=== PATIENT | female | born 2000 | race Caucasian/White ===

== ENCOUNTER → 2022-07-15 08:57 | Outpatient (CLI) | payer OTHER, SELFPAY ==
--- NOTE | ~2022-07-15 | US_ITS ---
EXAMINATION: US abdomen limited DATE: 07/15/2022 09:22 INDICATION: Right upper quadrant abdominal pain. TECHNIQUE: Multiple grayscale and Doppler ultrasound images of the abdomen were obtained. COMPARISON: None FINDINGS: The visualized portions of the head and body of the pancreas are normal. The liver is beth l without focal lesion. There is normal flow in main portal vein. The gallbladder is normal in size a nd contains gallstones. No gallbladder wall thickening. There was a positive sonographic Albrecht sign. The common duct is normal and measures 3 mm . IMPRESSION: 1. Cholelithiasis and positive sonographic Albrecht sign, but no gallbladder wall thickening or gallbla dder distention to suggest acute cholecystitis. Reviewed, dictated and finalized at location A. [employer] IMPRESSION: 1. Cholelithiasis and positive sonographic Albrecht sign, but no gallbladder wall thickening or gallbladder distention to suggest acute cholecystitis.
== END ==
PROVIDERS: PCP Family Medicine; Visit Provider Surgery
DX: R10.11 Right upper quadrant pain (principal); K80.20 Calculus of gallbladder without cholecystitis without obstruction
CPT/HCPCS: 76705

== ENCOUNTER 2022-07-18 12:03 | Outpatient (CLI) | payer OTHER, SELFPAY ==
[2022-07-18 12:41] LABS: Alanine Aminotransferase 16 U/L (6-35); Albumin Level 4.4 g/dL (3.5-5.1); Alkaline Phosphatase 87 U/L (38-126); Amylase 64 U/L (30-110); Aspartate Amino Transferase 21 U/L (14-36); Bilirubin,Total 0.3 mg/dL (0.2-1.3); Lipase 37 U/L (23-300)
== END 2022-07-18 12:04 | disposition home or self-care (01) ==
PROVIDERS: PCP Family Medicine; Visit Provider Surgery
DX: K80.20 Calculus of gallbladder without cholecystitis without obstruction (principal); Z01.818 Encounter for other preprocedural examination
CPT/HCPCS: 36415; 80076; 82150; 83690; 86850; 86900; 86901

== ENCOUNTER 2022-07-19 01:24 | Day surgery (SDC) | payer OTHER, SELFPAY ==
[2022-07-17 12:53] VITALS: BMI 48.4
--- NOTE | 2022-07-17 12:56 | PC.NURSE ---
Report to the Outpatient Waiting Room, entrance under the green pavilion located off [facility], at time 12:00 on date 07/19/22. Planned Procedure Time: 2:00. Time changes happen often and if your time is changed the preop area will call you the afternoon before. - You and your visitor will be asked to self-screen and do not enter if you have any COVID symptoms. - Only one visitor is requested with a max of two and NO children visitors are allowed at this time. - The patient visitor may be requested to leave or wait in car when not with patient due to distancing restrictions. - A mask is REQUIRED within the hospital. Patients may have clear liquids (water, carbonated beverages, clear teas, apple juice) until 3 hours prior to surgery (11:00) with a maximum of 20 ounces. - No food from midnight until time of surgery Take the following medications with a SIP of water the morning of surgery: NONE Medications to discontinue per physician: N/A Date to take last dose: N/A Please no make-up, nail chinese, hairspray, perfume, deodorant, or body powder the day of surgery. No jewelry (including any body piercings) or valuables the day of surgery, leave them at home. Please take a shower or bath the night before, or the morning of, surgery with an antibacterial soap (HIBICLENS). Wear comfortable, loose fitting clothing. - Jewelry must be removed prior to entering the operating room. Rings and piercings that are not removed may be cut off. - The hospital will not accept responsibility for valuables. - Please leave all valuables, including medications, at home the day of surgery. If you are going home after surgery, a licensed driver salesman must drive you home. - NO public transportation without another adult if you receive anesthesia. - We recommend that an adult stay with you for 24 hours following discharge. - We also recommend that you do not drive, make important decision, drink alcoholic beverages, or take any drugs that were not prescribed by your health care provider for at least 24 hours after your discharge time. Follow any additional instructions given to you from your surgeon. If you or anyone in your household have experienced Covid symptoms in the past week, please notify your surgeon or the nurse liaison at the phone number below for possible testing. Telephone instructions given to PT - JAKE DALTON and asked if any additional questions and then verbalized understanding. Patient advised to call surgeon office or pre surgery nurse liaison [phone] if any additional questions.
[2022-07-19] VITALS (7 sets, daily range): BP systolic 113–150; BP diastolic 53–90; PULSE 80–108; RESP 14–20; TEMP 36.4–37.3; O2SAT 97–100
[2022-07-19] MEDS: LACTATED RINGERS 1,000 ML 30 ML IV CONT ×2 (12:42→14:39)
[2022-07-19] MEDS: ACETAMINOPHEN 500 MG TABLET 1000 MG PO (12:43)
[2022-07-19] MEDS: KETOROLAC 15 MG/ML VIAL (*BKC) IV PUSH (12:44)
--- NOTE | 2022-07-19 13:11 | WPDANESEPPF ---
Anes - Initial Pre Proc Eval Procedure: Operation Date: 07/19/22 14:00 Proposed Procedures p Laparoscopic Cholecystectomy, Possible Open - Noah Nicholas DO Date/Time: 07/19/22 13:11 Surgeon: Noah Nicholas DO Pre Op Diagnosis: symp cholelithiasis Patient Data Age: 22 Gender: F Height: 1.68 m Weight: 132.4 kg Last Vital Signs Temp 37.3 C 07/19/22 12:18 Pulse 90 07/19/22 12:18 Resp 20 07/19/22 12:18 BP 150/90 H 07/19/22 12:18 Pulse Ox 99 07/19/22 12:18 O2 Del Method Room Air 07/19/22 12:18 Allergies Allergy/AdvReac Type Severity Reaction Status Date / Time Penicillins Allergy Intermediate Hives / Verified 07/19/22 12:18 Red Face Home Medications Medication Instructions Recorded Confirmed Type etonogestrel 68 mg subdermal 1 implant subdermal ONCE 07/17/22 07/19/22 History implant (Nexplanon) rizatriptan 10 mg tablet 10 mg PO ONCE PRN migraine headache 07/17/22 07/19/22 History Patient hx anesthesia problems: none Family hx anesthesia problems: none Results Review: All pre-operative results and documents have been reviewed as part of the pre-operative evaluation. [facility] Past Medical History Medical History Migraines Surgical History Surgical History Hx of wisdom tooth extraction 2017 Family History Family History Other Acute myocardial infarction Asthma Diabetes mellitus Heart disease Hypertension Malignant neoplasm of prostate Social History Social History Smoking status: Never smoker Alcohol intake: current Alcohol use details: EVERY FEW MONTHS Substance use: never Substance use type: does not use Living arrangements: with family Spiritual care concerns: No Anes - Eval Final PreProcedure Day of Procedure 07/19/22 13:11 Patient weight: morbidly obese Heart: regular rate and rhythm Lungs: clear to auscultation Airway: Mallampati scale class II Neurological: alert and oriented Last oral intake: >/= 8 hours ASA classification: III Emergent: no Anesthetic plan: proceed Anesthesia type and monitoring: general ETT and standard monitoring Results Review: All pre-operative results and documents have been reviewed as part of the pre-operative evaluation. Informed Consent: The patient's anesthetic plan and its attendant risks and benefits were discussed with the patient/family/POA. Questions were solicited and answers provided to the satisfaction of the patient/family/POA.
--- NOTE | 2022-07-19 13:13 | WPDHPUPDATE1 ---
History and Physical Update Update Date/Time: 07/19/22 13:13 History and Physical has been reviewed, including an updated exam of the patient. There are NO changes in the patient's condition. Risks, benefits, and alternatives have been discussed and questions answered. Patient agrees to proceed with procedure.
[2022-07-19] MEDS: SCOPOLAMINE 1.5 MG PATCH TRANSDERM ×2 (13:15→14:59)
[2022-07-19] MEDS: ceFAZolin 3 GM/D5W 100 ML 100 ML IVPB (13:37)
[2022-07-19] MEDS: BUPIVACAINE/EPINEPHRINE 0.5% 30 ML VIAL INFILTRATE (13:57)
--- NOTE | 2022-07-19 14:37 | W.PM.PROC2 ---
Procedure Note - Detailed Date of Procedure 07/19/22 Pre-op Diagnosis Symptomatic cholelithiasis Post-op Diagnosis Same Procedure Performed Laparoscopic Cholecystectomy Surgeon Noah Nicholas, DO Anesthesia General and Local (0.5% bupivacaine) Indications This is a 22-year-old woman who presented with right upper quadrant abdominal pain that started about 2-3 weeks ago. She has been having intermittent pain after eating. Heavier foods have seemed to cause more pain. A gallbladder ultrasound was performed which showed evidence of cholelithiasis. Her liver enzymes were normal preoperatively. Discussions were made with the patient about treatment options and decision made to proceed with laparoscopic cholecystectomy, possible open. Findings Laparoscopic cholecystectomy was performed. The gallbladder was slightly dilated but there were no significant pericholecystic adhesions. The cystic duct appeared normal in size. The gallbladder contained many small stones. The gallbladder was removed and sent to the lab for pathology. Description of Procedure Procedure as well as risks, benefits, and alternatives were discussed with patient. Written consent was obtained and placed in chart prior to procedure. The patient was brought back to surgical suite. Patient was placed in supine position on operating table. Time-out was done to confirm patient and procedure. Patient was then intubated by the anesthesia department. Abdomen was prepped and draped in sterile fashion using chlorhexidine prep. 0.5% bupivacaine with epinephrine was infiltrated at each site of incision. A 5 millimeter incision was made near the umbilicus, and a 5 millimeter Optiview trocar was advanced through the abdominal layers under direct visualization. Once inside the abdominal cavity, carbon dioxide was insufflated to create a pneumoperitoneum. The camera was inserted and the abdomen was inspected. No immediate abnormalities were identified. The patient was placed in reverse Trendelenburg position and rotated slightly to the left. An 11 millimeter incision was made in the subxiphoid region, and an 11 millimeter trocar was inserted under direct visualization. Two 5 millimeter incisions were made in the right upper quadrant, and two 5 millimeter trocars were inserted under direct visualization. The gallbladder was identified and grasped at the fundus and retracted superiorly. It was then grasped at the infundibulum retracted laterally. Careful dissection around the neck of the gallbladder was performed using blunt dissection with a [place] grasper and hook electrocautery. The cystic duct was identified, and a window was created behind it. The cystic artery was also identified and a window was created behind it. The critical view of safety was identified, visualizing the cystic duct running directly into the neck of the gallbladder, and the cystic artery running directly into the wall of the gallbladder. A 5 millimeter clip geriatric physical therapist was then used to place 2 clips proximally and 1 clip distally on both the cystic duct and cystic artery. They were then both transected using endoscopic scissors. Once safely away from the coleman hepatitis, the gallbladder was dissected free from the liver bed using hook electrocautery. Hemostasis was achieved along the way. The gallbladder was removed completely and then removed through the subxiphoid port. The liver bed was then inspected. Hemostasis appeared adequate, and our clips appeared secure. The area was gently irrigated with sterile saline. No other abnormalities were seen. The patient was flattened out in bed, and 1 final inspection was made around the abdominal cavity. The subxiphoid port was removed, and a David Kevan cone was used to approximate the fascia with an 0-Vicryl simple interrupted suture. The remaining ports were then removed under direct visualization, the camera was removed, and the pneumoperitoneum was released. The skin
== END 2022-07-19 16:20 | disposition home or self-care (01) ==
PROVIDERS: PCP Family Medicine; Visit Provider Surgery
PROC: 0FT44ZZ Resection of Gallbladder, Percutaneous Endoscopic Approach (ICD-10-PCS; CPT 47562; principal; 2022-07-19 14:00)
DX: K80.10 Calculus of gallbladder with chronic cholecystitis without obstruction (principal); E66.01 Morbid (severe) obesity due to excess calories; Z68.42 Body mass index [BMI] 45.0-49.9, adult
CPT/HCPCS: 47562; 88304; A9270; J0330; J0690; J1100; J1885; J2250; J2270; J2405; J2704; J7120

== ENCOUNTER 2023-01-26 07:45 | Outpatient (CLI) | payer OTHER, SELFPAY ==
[2023-01-26 08:45] LABS: Alanine Aminotransferase 17 U/L (6-35); Albumin Level 3.8 g/dL (3.5-5.1); Alkaline Phosphatase 76 U/L (38-126); Anion Gap 6 mmol/L (8-16); Aspartate Amino Transferase 24 U/L (14-36); Bilirubin,Total 0.5 mg/dL (0.2-1.3); Blood Urea Nitrogen 8 mg/dL (7-17); Calcium 8.7 mg/dL (8.4-10.2); Carbon Dioxide 27 mmol/L (22-30); Chloride 105 mmol/L (98-107); Estimated Glomerular Filt Rate > 60; Glucose 93 mg/dL (65-110); Sodium 138 mmol/L (137-145)
[2023-01-26 08:46] LABS: Hemoglobin A1C 5.5 % (<5.7)
== END 2023-01-26 07:46 | disposition home or self-care (01) ==
PROVIDERS: PCP Family Medicine; Visit Provider Family Medicine
DX: Z00.00 Encounter for general adult medical examination without abnormal findings (principal)
CPT/HCPCS: 36415; 80053; 83036

== ENCOUNTER 2023-04-24 17:19 | Emergency (ER) | payer OTHER, SELFPAY ==
--- NOTE | ~2023-04-24 | XR_ITS ---
EXAM: XR shoulder LT min 2V DATE: 04/24/2023 18:25 HISTORY: Pain in shoulder 1 week. NKI . COMPARISON: None available. FINDINGS: Normal mineralization. No fracture or dislocation. No lytic or blastic lesion. Mild degene rative change at the AC joint. No erosion or periosteal change. Soft tissues within normal limits. IMPRESSION: No acute osseous finding in the left shoulder. Reviewed, dictated and finalized at location K.
[2023-04-24 17:25] VITALS: BP 149/57; PULSE 96; RESP 18; TEMP 37.1; O2SAT 100
--- NOTE | 2023-04-24 18:16 | ED.GENADULT ---
HPI - General Adult General Chief complaint: Extremity Injury, Upper Stated complaint: Left Arm Injury Source: patient Mode of arrival: ambulatory Limitations: no limitations History of Present Illness HPI narrative: Patient presents for evaluation of left shoulder pain. Pain started about one week ago. She cannot identify a specific injury. Pain is worst upon waking for the day. She rates her pain 8/10 in severity. She notes some pain in the left lateral aspect of her neck. She also reports numbness in the fifth digit of the left hand. Pain is worse with certain movements. She has tried tylenol and ibuprofen for her symptoms. Related Data Home Medications Medication Instructions Recorded Confirmed etonogestrel 68 mg subdermal 1 implant subdermal ONCE 07/17/22 04/24/23 implant (Nexplanon) rizatriptan 10 mg tablet 10 mg PO ONCE PRN migraine headache 07/17/22 04/24/23 Allergies Allergy/AdvReac Type Severity Reaction Status Date / Time Penicillins Allergy Intermediate Hives / Verified 04/24/23 17:34 Red Face Review of Systems Review of Systems: CONSTITUTIONAL: Denies fever, chills, or sweats. EYES: Denies visual changes, redness, or discharge. ENT: Denies rhinorrhea, congestion, sore throat, or otalgia. CARDIOVASCULAR: Denies chest pain, palpitations, or edema. RESPIRATORY: Denies cough or dyspnea. GASTROINTESTINAL: Denies abdominal pain, nausea, vomiting, or diarrhea. GENITOURINARY: Denies dysuria or hematuria. SKIN: Denies rash or itching. MUSCULOSKELETAL: Reports pain in left shoulder with some pain in numbness in left lateral aspect of the neck NEUROLOGIC: Reports numbness in fifth digit of left hand. Denies headache, dizziness, or weakness. PSYCHIATRIC: Denies anxiety or depression. [facility] Past Medical History Medical History Migraines Surgical History Surgical History Hx of wisdom tooth extraction 2017 Family History Family History Other Acute myocardial infarction Asthma Diabetes mellitus Heart disease Hypertension Malignant neoplasm of prostate Social History Social History Smoking status: Never smoker Alcohol intake: current Alcohol use details: EVERY FEW MONTHS Substance use: never Substance use type: does not use Living arrangements: with family Gender identity (if verbalized by the patient): Female Sexual Orientation (if Verbalized by the Patient): Straight or Heterosexual Spiritual care concerns: No Exam Narrative: GENERAL: Well-appearing, well-nourished, and in no acute distress. HEAD: Normocephalic, atraumatic. EYES: PERRLA and EOMI. ENT: Nares clear, no rhinorrhea or epistaxis. Mucous membranes moist. Oropharynx without tonsillar hypertrophy exudate or other lesions. Bilateral TMs pearly hernandez nonbulging NECK: Supple. No adenopathy or masses. No carotid bruits or JVD CHEST: Clear to auscultation. No respiratory distress. No wheezes rales or rhonchi HEART: Regular rate and rhythm. No murmur heard. Normal peripheral pulses. ABDOMEN: Soft, nontender, nondistended, normal active bowel sounds. EXTREMITIES: Tenderness noted in left shoulder. No crepitus or deformity. Full ROM of left shoulder. 5/5 hand stock control supervisor strength bilaterally. SKIN: Warm, dry, no rash. NEURO: No focal deficits. Alert and oriented x3. PSYCH: Normal mood and affect. Course Course Emergency Course: This is a 22-year-old female who presented for evaluation of left shoulder pain. X-ray negative for fracture. Exam is consistent with strain. Offered to discharge her with tramadol or flexeril, which she declined. Advised on RICE therapy. OTC agents for pain. Follow-up with primary provider. Go to the emergency department for worsen
== END 2023-04-24 18:50 | disposition home or self-care (01) ==
PROVIDERS: Emergency Provider Nurse Practitioner; PCP Family Medicine
DX: S46.912A Strain of unspecified muscle, fascia and tendon at shoulder and upper arm level, left arm, initial encounter (principal); X58.XXXA Exposure to other specified factors, initial encounter
CPT/HCPCS: 73030; 99213; G0463

== ENCOUNTER 2023-11-27 07:39 | Outpatient (CLI) | payer OTHER, SELFPAY ==
[2023-11-27 08:06] LABS: Hematocrit 37.6 % (37.0-47.0); Hemoglobin 11.8 g/dL (12.0-15.0); Mean Corpuscular HGB Conc 31.4 g/dl (32-36); Mean Corpuscular Hemoglobin 25.5 pg (26-34); Mean Corpuscular Volume 81.4 fl (80-100); Mean Platelet Volume 8.6 fl (7.4-10.4); Platelet Count Result 464 k/mm3 (150-375); Red Blood Count 4.62 M/mm3 (4.2-5.4); White Blood Count 9.3 K/mm3 (4.5-10.0)
[2023-11-27 08:13] LABS: Alanine Aminotransferase 13 U/L (6-35); Albumin Level 4.1 g/dL (3.5-5.1); Alkaline Phosphatase 82 U/L (38-126); Anion Gap 8 mmol/L (4-12); Aspartate Amino Transferase 16 U/L (14-36); Bilirubin,Total 0.6 mg/dL (0.2-1.3); Blood Urea Nitrogen 9 mg/dL (7-17); Calcium 9.2 mg/dL (8.4-10.2); Carbon Dioxide 22 mmol/L (22-30); Chloride 108 mmol/L (98-107); Cholesterol 136 mg/dL (0-200); Estimated Glomerular Filt Rate > 60; Glucose 99 mg/dL (65-110); HDL Direct 38 mg/dL; Sodium 138 mmol/L (137-145); Triglycerides 71 mg/dL (<150)
[2023-11-27 08:23] LABS: LDL Cholesterol Direct 81 mg/dL
== END 2023-11-27 07:40 | disposition home or self-care (01) ==
LOC: ANHLAB 07:41
PROVIDERS: PCP Nurse Practitioner Adult Health; Visit Provider Nurse Practitioner Adult Health
DX: Z13.9 Encounter for screening, unspecified (principal)
CPT/HCPCS: 36415; 80053; 80061; 84443; 85027

== ENCOUNTER 2024-10-13 13:40 | Outpatient (CLI) | payer OTHER, SELFPAY ==
--- OUTSIDE RECORDS SUMMARY | 2024-10-13 16:13 | XMS_ITS | Clinical Summary ---
Author Organization [facility] [address] Address [address] [employer] [place] [address] Phone Care Team Providers Care Biodiesel Production Associate Name Role Phone Noble Dash MD Primary Care Provider + [phone] Ward Viera MD Unavailable [phone] Lori Jose MD Unavailable Allergies Active Allergy Reactions Criticality Noted Date Comments Penicillins Medications rizatriptan (MAXALT) 10 mg tablet 2 Active vit37/iron/folic acid (PRENATA ORAL) Take by mouth daily Active ibuprofen (ADVIL,MOTRIN) 600 mg tabletIndication s:Cramps Take 1 tablet (600 mg total) by mouth every 6 (six) hours as needed for pain 4 Active Additional Information Patient not taking.Reported on 09/09/2024 acetaminophen 500 mg capsule Take 2 capsules (1,000 mg total) by mouth every 6 (six) hours as needed for pain 4 Active Additional Information Patient not taking.Reported on 09/09/2024 norgestimate-eth inyl estradioL (ORTHO-CYCLEN) 0.25-35 mg-mcg per tabletIndication s: care and examination Take 1 tablet by mouth daily 28 tablet 14 5 Active Active Problems Problem Noted Date Diagnosed Date Severe obesity (BMI >= 40) 04/21/2021 Resolved Problems Problem Noted Date Diagnosed Date Resolved Date 39 weeks gestation of 07/28/2024 09/09/2024 Spontaneous vaginal delivery 07/28/2024 09/09/2024 Maternal varicella, non-immune 01/25/2024 09/09/2024 Pain of hand 11/11/2014 12/27/2023 Thoracic outlet syndrome 11/11/2014 Encounters Date Type Department Care Team Description 09/09/2024 10:30 AM DOCTOR OF NATUROPATHIC MEDICINE Office Visit [facility] [address] [place] [address] Lori Jose MD care and examination (Primary Dx) 07/28/2024 12:47 PM DOCTOR OF NATUROPATHIC MEDICINE Anesthesia Event [facility] [address] [place] [id number] Los Darby MD 07/28/2024 6:01 AM DOCTOR OF NATUROPATHIC MEDICINE - 07/29/2024 3:40 PM DOCTOR OF NATUROPATHIC MEDICINE Hospital Encounter [address] [address] Lori Jose MD Spontaneous vaginal delivery [O80] (Primary Dx); Encounter for supervision of other normal , third trimester; 39 weeks gestation of [Z3A.39] Discharge Disposition: Discharge to home or self care 07/17/2024 10:00 AM DOCTOR OF NATUROPATHIC MEDICINE Office Visit [facility] [address] [place] [address] Lori Jose MD Encounter for supervision of other normal , third trimester (Primary Dx) from Last 3 Months Immunizations Immunization Administration Dates Next Due Influenza, Trivalent, Preser vative Free, Intramuscular 05/07/2024 MMR 01/30/2020(Deferred: Contraindic ation) Tdap 05/30/2024,01/29/2020 Varicella 07/29/2024 Surgical History Surgery Date Site/Laterality Comments LAPAROSCOPIC CHOLECYSTECTOMY 07/30/2021 - 07/29/2022 Medical History Medical History Date Comments Thoracic outlet syndrome 2014 Family History Medical History Relation Name Comments Hypertension Father Colon cancer Father's Brother 1 Heart attack Father's Brother 2 paternal uncle x3 Heart disease Father's Brother 2 Heart attack Father's Sister Diabetes Paternal Grandmother Relation Name Status Comments Father Father's Brother 1 Father's Brother 2 Father's Sister Paternal Grandmother Social History Tobacco Use Types Packs/Day Years Used Date Smoking Tobacco: Never Smokeless Tobacco: Never Alcohol Use Standard Drinks/Week Comments Yes 1 (1 standard drink = 0.6 oz pur e alcohol) 1 X month Social Connection and Isolat ion Panel [NHANES] Answer Date Recorded In a typical week, how many times do you talk on the phone with family, friends, or neighbors? More than three times a week 07/28/2024 How often do you get togethe r with friends or relatives? Twice a week 07/28/2024 How often do you attend chur ch or rastafarian services? More than 4 times per year 07/28/2024 Do you belong to any clubs o r organizations such as worship groups, unions, fraternal or athletic groups, or school groups? No 07/28/2024 How often do you attend meet ings of the clubs or organizations you belong to? Never 07/28/2024 Are you , , di vorced, , never , or living with a partner? Living with partner 07/28/2024 AUDIT-C Answer Date Recorded Q1: How often do you have a drink containing alcohol? Never 07/28/2024 Q2: How many drinks containi ng alcohol do you have on a typical day when you are drinking? Patient does not drink Q3: How often do you have si x or more drinks on one occasion? Never 07/28/2024 Overall Financial Resource Strain (CARDIA) Answe r Date Recorded How hard is it for you to pa y for the very basics like food, housing, medical care, and heating? Not hard at all 07/28/2024 PHQ-2 Answer Date Recorded PHQ-2 Total Score (If total score is 3 or more points, staff should administer the PHQ-9) 0 07/28/2024 [facility] - Occupational Stress Questionnaire Answer Date Recorded Do you feel stress - tense, restless, nervous, or anxious, or unable to sleep at night because your mind is troubled all the time - these days? Not at all 07/28/2024 Exercise Vital Sign Answer Date Recorde d On average, how many days pe r week do you engage in moderate to strenuous exercise (like a brisk walk)? 3 days 07/28/2024 On average, how many minutes do you engage in exercise at this level? 30 min 07/28/2024 Hunger Vital Sign Answer Date Recorded Within the past 12 months, y ou worried that your food would run out before you got the money to buy more. Never true 07/28/20 24 Within the past 12 months, t he food you bought just didn't last and you didn't have money to get more. Never true 07/28/2024 PRAPARE - Transportation Answer Date Re corded In the past 12 months, has l ack of transportation kept you from medical appointments or from getting medications? No 07/01 In the past 12 months, has l ack of transportation kept you from meetings, work, or from getting things needed for daily living? No 07/28/2024 Housing Stability Vital Sign Answer Alfredo e Recorded In the last 12 months, was t here a time when you were not able to pay the mortgage or rent on time? No 07/28/2024 In the past 12 months, how m any times have you moved where you were living? 0 07/28/2024 At any time in the past 12 m [facility], were you homeless or living in a correction (including now)? No 07/28/2024 Personal Safety Answer Date Recorded Have you ever been in or are you currently in a harmful physical or emotional relationship or is someone making you feel afraid or unsafe? Denies 07/28/2024 Comments No Sex and Gender Information Value Date Recorded Sex Assigned at Not on file Legal Sex Female 12:35 PM DOCTOR OF NATUROPATHIC MEDICINE Gender Identity Not on file Sexual Orientation Not on file Occupation Industry Job Start Date Job End Date RN Not on file Not on file Not on file Obstetrics History Para Term AB IAB SAB Ectopic Multiple Livin g Live Births 2 2 2 0 0 0 0 0 0 2 2 Date Outcome GA Total Labor Labor/2nd/3rd Weight Sex Type Anes PTL Cyndie A1 A5 Name Clin 2019 Term 3.245 kg (7 lb 2.5 oz) F Vag-Sp ont None N Livin g MILLE R,GIR LKAIT JU Madrigal y, Evan [place] MD Complications:Other (Comment ) Delivery Location:[facility] 2023 Term 39w 2d 0h 51m 0h 35m/0h 10m/0h 06m 3.302 kg (7 lb 4.5 oz) M Vagina l Epidur al N Livin g 9 9 Nathan Rafael cordova, Fany webber MD Complications:None Delivery Location:[facility] ([facility]) Comments 1. 2019 - labor, in the ED for unknown , no care. 2. 2023 - elective pitocin induction. Summary Episode Dates Number of Fetuses Estimated Date of Delivery 12/27/2023 - Present (10/13/2024) 1 08/02/2024 (set by Lori Jose MD on 12/27/2023 based on Last Menstrual Period on 10/27/2023 (Exact Date)) Dating Summary Based On JAMES GA Diff Last Menstrual Period on 10/27/2023 (Exact Date) 08/02/2024 Working Ultrasound on 12/27/2023 08/02/2024 Same GA:8w5d Vitals Pregravid Weight Height TWG (As of 10/13/2024) Pregrav id BMI 140.2 kg (309 lb) 165.1 cm (5' 5 ) -3.629 kg (-8 lb) 5 1.42 Date GA Fund Present FHR Mvmt BP Weight Edema Alb Glu Ket Dil/ Eff/Sta 024 8w5d 110/7 2 140.2 kg (309 lb) 0/ 024 35w2d 110/8 0 136.1 kg (300 lb) 50/-2 024 37w5d 110/7 8 136.5 kg (301 lb) 60/-2 024 39w2d Inpatient data not displayed here. See encounter summary. Notes Progress Notes - Office Visi t - 09/09/2024 - GA:39w2d 09/09/2024 - 39w2d - Lori Jose MD Subjective/Objective Patient ID: Jake Dalton is a 24 y.o. female. Chief Complaint Care HPI presents 6 wks s/p - elective pitocin induction at 39 wks. Breastfed x 1 month and now formula. Baby is doing well. Lochia has stopped. Used Nexplanon prior to and OCPs in her teens. EPDS: 0. Last Pap 10/12/23 was negative. Review of Systems Gastrointestinal: Negative for abdominal pain, constipation and diarrhea. Genitourinary: Negative for difficulty urinating, dysuria, hematuria, pelvic pain, vaginal bleeding, vaginal discharge and vaginal pain. Vitals BP 122/80 Wt 290 lb (131.5 kg) LMP 10/27/2023 (Exact Date) BMI 48.26 kg/m Physical Exam Constitutional: Appearance: Normal appearance. Abdominal: Palpations: Abdomen is soft. Tenderness: There is no abdominal tenderness. Genitourinary: Uterus normal. Right labia: normal. Left Labia: normal. No vaginal discharge or erythema. Right adnexa: normal. Left adnexa: normal. Cervix: Normal exam. Neurological: General: No focal deficit present. Mental Status: She is alert and oriented to person, place, and time. Psychiatric: Mood and Affect: Mood normal. Behavior: Behavior normal. Assessment/Plan 1. care and examination (Primary) Doing well. Activity as tolerated. She elects for OCPs now. Discussed regular pill use, side effects including breast tenderness, nausea, and irregular bleeding to start. F/u 1 year for routine care or PRN. - norgestimate-ethinyl estradioL (ORTHO-CYCLEN) 0.25-35 mg-mcg per tablet; Take 1 tablet by mouth daily Dispense: 28 tablet; Refill: 14 OR OF NATUROPATHIC MEDICINE Progress Notes - Office Visi t - 07/17/2024 - GA:37w5d 07/17/2024 - 37w5d - Lori Jose MD Continues with irregular CTXs. 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 Labor precautions reviewed. SVE: tight 2/60/-2 soft mid. Interested in elective induction - scheduled for pitocin 07/28. OR OF NATUROPATHIC MEDICINE Progress Notes - Office Visi t - 07/10/2024 - GA:36w5d 07/10/2024 - 36w5d - Lori Jose MD Feeling well overall, maybe noticed some CTXs in her back but resolve with rest. Labor precautions discussed. OR OF NATUROPATHIC MEDICINE Progress Notes - Office Visi t - 06/30/2024 - GA:35w2d 06/30/2024 - 35w2d - Lori Jose MD Sono today - cephalic, anterior placenta, MICHAELA 7.2 (MVP 3.5), EFW 2773 g/6 lb 2 oz (63%). Has some pelvic soreness. No CTXs. Labor precautions discussed. GBS collected. SVE: 50/-2 soft mid. OR OF NATUROPATHIC MEDICINE Progress Notes - Routine Pre - 06/13/2024 - GA:32w6d 06/13/2024 - 32w6d - Lori Jose MD Heartburn improved with OTC medication. Feeling well overall. Repeat growth sono next visit for S>D. OR OF NATUROPATHIC MEDICINE Progress Notes - Routine Pre - 05/30/2024 - GA:30w6d 05/30/2024 - 30w6d - Nini Randolph LPN Education discussed with patient. Including rooming in, skin to skin and benefits of breast feeding. Patient already has a pump through her insurance. She has not taken a class but does have a class offered through her insurance that she is planning to take. All questions addressed and patient is planning to breast feed. 05/30/2024 - 30w6d - Lori Jose MD Sono today - cephalic, anterior placenta, MICHAELA 10.7, EFW 1673 g (41%). C/o increased heartburn. Tums helps. Also advised lifestyle modification, Pepcid. Tdap today. Has received flu vaccine. Also discussed RSV vaccine recommendations for . Progress Notes - Routine Pre - 05/07/2024 - GA:27w4d 05/07/2024 - 27w4d - Lori Jose MD Reviewed sono from last visit - nose/lips and stomach are grossly normal. Growth sono ordered for next visit. Feeling well overall, without complaints. Discussed movement monitoring. 1 hr GTT ordered for next week. Progress Notes - Routine Pre - 04/11/2024 - GA:23w6d 04/11/2024 - 23w6d - Lori Jose MD Sono repeated today - official report pending. Did have 3D ultrasound for fun with good face view. Feeling well, without complaints. Progress Notes - Routine Pre juhi - 03/14/2024 - GA:19w6d 03/14/2024 - 19w6d - Lori Jose MD Sono today - cephalic, anterior placenta, MICHAELA 14.1, EFW 324 g (52%). Feeling well. Has noticed some flutters. Decided against NIPT. Progress Notes - Routine Pre juhi - 02/15/2024 - GA:15w6d 02/15/2024 - 15w6d - Lori Jose MD Feeling well. Discussed genetic screening options - NIPT v quad screen. She elects for NIPT now. Anatomy scan next visit. Progress Notes - Routine Pre juhi - 01/25/2024 - GA:12w6d 01/25/2024 - 12w6d - Lori Jose MD Reviewed OB lab - varicella non-immune. Feeling better overall. Stomach bug resolved a day or so after called last week. She will be traveling to [place] next month. travel precautions discussed. Unable to clearly doppler FHTs. Sono - 173 bpm. Progress Notes - Initial Pre - 12/27/2023 - GA:8w5d 12/27/2023 - 8w5d - Lori Jose MD New OB -- had Nexplanon removed 10/18 to try to conceive. JAMES 08/02 by definite LMP 10/26 c/w sono today. Nausea improved some with B6. Also advised frequent small meals and unisom. OB labs ordered with GC/CT. Last Filed Vital Signs Vital Sign Reading Time Taken Comments Blood Pressure 122/80 09/09/2024 10:18 AM DOCTOR OF NATUROPATHIC MEDICINE Pulse 74 07/29/2024 6:00 AM DOCTOR OF NATUROPATHIC MEDICINE Temperature 36.8 C (98.2 F) 07/29/2024 6:00 AM DOCTOR OF NATUROPATHIC MEDICINE Respiratory Rate 18 07/29/2024 6:00 AM DOCTOR OF NATUROPATHIC MEDICINE Oxygen Saturation 93% 07/28/2024 1:49 PM DOCTOR OF NATUROPATHIC MEDICINE Inhaled Oxygen Concentration - - Weight 131.5 kg (290 lb) 09/09/2024 10:18 AM DOCTOR OF NATUROPATHIC MEDICINE Height 165.1 cm (5' 5 ) 07/28/2024 6:31 AM DOCTOR OF NATUROPATHIC MEDICINE Body Mass Index 48.26 07/28/2024 6:31 AM DOCTOR OF NATUROPATHIC MEDICINE Plan of Treatment Health Maintenance Due Date Last Done Comments Covid-19 Vaccine (3 - 2023-2 5 season) 2024 11/24/2020, 10/27/2020 Cervical Cancer Screening 10/11/2024 10/12/2023, Regular Well Visit/Exam 18-64 10/11/2024, 06/07/2022, 04/21/2021 Depression Screening 07/28/2025 07/28/2024 DTaP/Tdap/Td Vaccine (9 - Td or Tdap) 05/30/2034 05/30/2024, 01/29/2020, 02/06/2011, Additional history exists Hepatitis B Screening Completed 08/31/2000 , 03/28/2000, 1999 Pneumococcal vaccine <65 Completed 11/28/2000, 08/2000 HPV Vaccines Completed 09/22/2014, 04/29, 03/03/2014 Hepatitis C Screening Completed 12/27/2023, 020 Influenza Vaccine Completed 05/07/2024, , 07/20/2015, Additional history exists Varicella Vaccines Completed 07/29/2024, 0 02/06/2011, 05/30/2000 Procedures Procedure Name Priority Date/Time Associated Diagnosis Comments CBC WITHOUT DIFFERENTIAL Routine 07/29/2024 6:45 AM DOCTOR OF NATUROPATHIC MEDICINE BLOOD GAS, CORD ARTERIAL STAT 07/28/2024 1:37 PM DOCTOR OF NATUROPATHIC MEDICINE BLOOD GAS, CORD VENOUS STAT 07/28/2024 1:37 PM DOCTOR OF NATUROPATHIC MEDICINE ANESTHESIA EPIDURAL BLOCK Routine 07/28/2024 1:18 PM DOCTOR OF NATUROPATHIC MEDICINE ANTIBODY SCREEN STAT 07/28/2024 6:42 AM DOCTOR OF NATUROPATHIC MEDICINE ABO/RH STAT 07/28/2024 6:42 AM DOCTOR OF NATUROPATHIC MEDICINE CBC WITHOUT DIFFERENTIAL STAT 07/28/2024 6:42 AM DOCTOR OF NATUROPATHIC MEDICINE TYPE AND SCREEN STAT 07/28/2024 6:42 AM DOCTOR OF NATUROPATHIC MEDICINE RPR Routine 07/28/2024 6:42 AM DOCTOR OF NATUROPATHIC MEDICINE POCT URINE GLUCOSE AND PROTEIN Routine 07/17/2024 10:17 AM DOCTOR OF NATUROPATHIC MEDICINE Encounter for supervision of other normal , third trimester HEPATITIS C ANTIBODY Routine 12/27/2023 11:21 AM CDT Encounter for supervision of other normal in first trimester 8 weeks gestation of PAP WITH REFLEX TO HIGH RISK HPV Routine 10/12/2023 9:25 AM CDT Screening for malignant neoplasm of the cervix from Last 3 Months or Most Recently Relevant to Health Maintenance Results * (ABNORMAL) CBC without differential (07/29/2024 6:45 AM DOCTOR OF NATUROPATHIC MEDICINE) WBC 14.2(H) 3.8 - 9.9 K/cumm Hgb 10.3(L) 11.9 - 15.5 g/dL [facility] ([facility]) Hct 31.7(L) 35.6 - 45.5 % [facility] ([facility]) Plt 291 150 - 400 K/cumm [facility] ([facility]) MPV 10.2 9.1 - 12.3 fL [facility] ([facility]) RBC 3.92 3.90 - 5.20 M/cumm [facility] ([facility]) MCV 80.9(L) 81.3 - 96.4 fL [facility] ([facility]) MCH 26.3(L) 27.1 - 33.3 pg [facility] ([facility]) MCHC 32.5 32.3 - 35.7 g/dL [facility] ([facility]) RDW CV 14.4 11.1 - 14.9 % [facility] ([facility]) RDW SD 41.9 35.7 - 48.1 fL [facility] ([facility]) NRBC abs 0.00 0.00 - 0.01 K/cumm [facility] ([facility]) Blood 07/29/2024 6:45 AM DOCTOR OF NATUROPATHIC MEDICINE 07/29/2024 7:02 AM DOCTOR OF NATUROPATHIC MEDICINE Lori Jose MD LAB BLOOD ORDERABLES Final Result Performing Organization Address [facility] de Phone Number LOKESH AND[facility] (SP) 1 [facility] [employer] [place] [place] [address] * Blood Gas, Cord Venous (07/28/2024 1:37 PM DOCTOR OF NATUROPATHIC MEDICINE) pH Cord Danny 7.41 pCO2 Cord Danny 34 mmHg [facility] ([facility]) pO2 Cord Danny 30 mmHg [facility] ([facility]) Base Excess Cord Danny -2 mmol/L [facility] ([facility]) HCO3 Cord Danny (Calc) 21 mmol/L [facility] ([facility]) O2 Sat Cord Danny (Louie) 66 % [facility] ([facility]) Comment: Interpretive Data No Reference Ranges Established Current Interpretive Data was last revised on 2018 Cord blood 07/28/2024 1:37 PM DOCTOR OF NATUROPATHIC MEDICINE 07/28/2024 1:41 PM DOCTOR OF NATUROPATHIC MEDICINE Lori Jose MD LAB BLOOD ORDERABLES Final Result Performing Organization Address [facility] Co de Phone Number LOKESH ANDRE (SP) 1 [facility] [place] [address] * Blood Gas, Cord Arterial (07/28/2024 1:37 PM DOCTOR OF NATUROPATHIC MEDICINE) pH Cord Art 7.23 pCO2 Cord Art 59 mmHg [facility] ([facility]) pO2 Cord Art 26 mmHg [facility] ([facility]) Base Excess Cord Art -5 mmol/L [facility] ([facility]) HCO3 Cord Art (Calc) 24 mmol/L [facility] ([facility]) O2 Sat Cord Art (Louie) 41 % [facility] ([facility]) Comment: Interpretive Data No Reference Ranges Established Current Interpretive Data was last revised on 2018 Cord blood 07/28/2024 1:37 PM DOCTOR OF NATUROPATHIC MEDICINE 07/28/2024 1:41 PM DOCTOR OF NATUROPATHIC MEDICINE Lori Jose MD LAB BLOOD ORDERABLES Final Result [facility] 1 [facility] Department of Laboratories [place] [id number] * Epidural Block (07/28/2024 1:18 PM DOCTOR OF NATUROPATHIC MEDICINE) Narrative Praveen Eastman CRNA - 07/28/2024 1:18 PM DOCTOR OF NATUROPATHIC MEDICINE Praveen Eastman CRNA 07/28/2024 1:18 PM Epidural Block Patient location: L&D End time: 07/28/2024 1:18 PM Reason for block: labor analgesia Staff: Supervising provider: Los Darby MD Placed by: WEIGHMASTER: Praveen Eastman CRNA Procedure prep: Preprocedure checklist: patient identified, procedure contraindications assessed, procedure consent obtained, surgical consent, IV checked, risks, benefits and alternatives discussed, monitors and equipment checked and timeout performed Patient Position: sitting Procedure performed while patient: awake Monitoring: oximetry and blood pressure Prep solution: chlorhexadine/alcohol PPE: provider hat/mask, sterile gloves and sterile drape Skin infiltrated with lidocaine 1%: yes Epidural: Approach: midline Imaging guidance used: no Location: L3-4 Number of attempts:1 Epidural needle: Injection technique: KOSTA saline Needle type: Tuohy Needle gauge: 18 G Needle length: 9 cm Loss of resistance: 8 cm Catheter: Catheter type: multi-orifice. Catheter at skin depth: 13 cm Negative aspiration of blood: no Negative aspiration of CSF: no Test dose: negative Assessment: Sensory level - left: full eval pending Sensory level - right: full eval pending Events: patient tolerated procedure well with no complications us Los Darby MD ANESTHESIA ORDERABLES Final Result * ABO/Rh (07/28/2024 6:42 AM DOCTOR OF NATUROPATHIC MEDICINE) ABO/Rh O Positive Blood 07/28/2024 6:42 AM DOCTOR OF NATUROPATHIC MEDICINE 07/28/2024 6:52 AM DOCTOR OF NATUROPATHIC MEDICINE Narrative [facility] ([facility]) - 07/28/2024 7:33 AM DOCTOR OF NATUROPATHIC MEDICINE Has the patient had Daratumumab or Isatuximab in the past 6 months?->Unknown Lori Jose MD LAB BLOOD BANK TEST O RDERABLES Final Result Performing Organization Address City/[facility]/ZIP Co de Phone Number LOKESH ANDRE (SP) 1 [facility] [place] [address] * RPR Blood (07/28/2024 6:42 AM DOCTOR OF NATUROPATHIC MEDICINE) [facility] RPR Nonreactive Nonreactive Comment:Testing performed by : [facility], [address] [place] [address]., [id number] Blood 07/28/2024 6:42 AM DOCTOR OF NATUROPATHIC MEDICINE 07/28/2024 10:10 AM DOCTOR OF NATUROPATHIC MEDICINE Lori Jose MD LAB MICROBIOLOGY - GE NERAL ORDERABLES Final Result Performing Organization Address [facility]/ZIP Co de Phone Number LOKESH ANDRE (SP) 1 [facility] [place] [address] * (ABNORMAL) CBC without differential (07/28/2024 6:42 AM DOCTOR OF NATUROPATHIC MEDICINE) [facility] WBC 12.1(H) 3.8 - 9.9 K/cumm Hgb 11.4(L) 11.9 - 15.5 g/dL [facility] ([facility]) Hct 35.3(L) 35.6 - 45.5 % [facility] ([facility]) Plt 315 150 - 400 K/cumm [facility] ([facility]) MPV 10.1 9.1 - 12.3 fL [facility] ([facility]) RBC 4.45 3.90 - 5.20 M/cumm [facility] ([facility]) MCV 79.3(L) 81.3 - 96.4 fL [facility] ([facility]) MCH 25.6(L) 27.1 - 33.3 pg [facility] ([facility]) MCHC 32.3 32.3 - 35.7 g/dL LOKESH ANDRE (HESPERIA) RDW CV 13.9 11.1 - 14.9 % LOK[facility] ANDRE (SP) RDW SD 40.3 35.7 - 48.1 fL LOKESH ANDRE (HESPERIA) NRBC abs 0.00 0.00 - 0.01 K/cumm LOKESH ANDRE (HESPERIA) Blood 07/28/2024 6:42 AM DOCTOR OF NATUROPATHIC MEDICINE 07/28/2024 6:52 AM DOCTOR OF NATUROPATHIC MEDICINE Lori Jose MD LAB BLOOD ORDERABLES Final Result LOKESH ANDRE (HESPERIA) 1 [facility] [employer] [place] [address] * Antibody screen (07/28/2024 6:42 AM DOCTOR OF NATUROPATHIC MEDICINE) [facility], indirect, Gel Interpretation Negative ABSC Blood 07/28/2024 6:42 AM DOCTOR OF NATUROPATHIC MEDICINE 07/28/2024 6:52 AM DOCTOR OF NATUROPATHIC MEDICINE Narrative LOKESH ANDRE (HESPERIA) - 07/28/2024 7:33 AM DOCTOR OF NATUROPATHIC MEDICINE Has the patient had Daratumumab or Isatuximab in the past 6 months?->Unknown Result [facility] Lori Jose MD LAB BLOOD BANK TEST O RDERABLES Final Result LOKESH ANDRE (HESPERIA) 1 [facility] [employer] [place] [address] * (ABNORMAL) POCT urine glucose and protein (07/17/2024 10:17 AM DOCTOR OF NATUROPATHIC MEDICINE) Glucose, ur, POC Negative Negative MG/DL Protein, ur, POC Trace(A) Negative Lot Number [id number] Urine 07/17/2024 10:1 7 AM DOCTOR OF NATUROPATHIC MEDICINE Lori Jose MD POINT OF CARE TEST OR DERABLES Final Result * Hepatitis C antibody Blood (12/27/2023 11:21 AM CDT) Hep C Ab Nonreactive Nonreactive Comment: Interpretive Data Nonreactive: Antibodies to HCV not detected. Does NOT exclude the possibility of recent exposure to HCV. Equivocal: Equivocal for HCV antibodies. Supplemental molecular testing will be automatically performed to determine infection status in accordance with current CDC screening recommendations. Reactive: Positive for HCV antibodies. This may represent current or past HCV infection. Supplemental molecular testing will be automatically performed to determine current infection status in accordance with current CDC screening recommendations. Interpretive data was last revised on 2019. Testing performed by: [facility], [address] [place] [address]., [id number] Blood 12/27/2023 11:2 1 AM CDT 12/27/2023 5:58 PM CDT Lori Jose MD LAB MICROBIOL OGY - GENERAL ORDERABLES Edited Result - Final [place] [id number] [facility] Department of Laboratories [place], [place] [id number] * Pap with reflex to High Risk HPV and Genotyping (Cytology Component) (10/12/2023 9:25 AM CDT) Thin prep (Pap test) 10/12/2023 9:25 AM CDT 10/12/2023 9:25 AM CDT Narrative PATHOLOGY CH - 10/16/2023 1:56 PM CDT [facility] Department of Pathology [address] [place] [address] Final Report Note to Patients: This report may contain a detailed description of human tissue sent by a health care provider to the laboratory for pathologic evaluation. The content of this report is essential for diagnosis and may provide important critical findings. This information may be unfamiliar to patients to review without a medical professional present. It is advised that the patient review this report in the presence of a health care provider who can answer questions and explain the details. Patient Name: JAKE DALTON Address: [address] [place] [address]- Gender: F : 2000 (Age: 23) Service: Location: [facility] #: [id number] Patient Type: SPECIMEN Taken: 10/12/2023 Received: 10/12/2023 Accessioned:: 10/15/2023 Reported: 10/16/2023 Physician(s): MD Lori Rodgers MD Diagnosis: SOURCE OF SPECIMEN Imaged Thinprep Pap Test w/ Reflex HPV - Chief Radiology Cytologic Material: STATEMENT OF ADEQUACY - Satisfactory for evaluation; endocervical/transformation zone component present GENERAL CATEGORIZATION: - Negative for intraepithelial lesion or malignancy MONTANA Pelaez(ASCP) Report Electronically Reviewed and Signed Out By MONTANA Pelaez(ASCP) 10/16/2023 13:56:06Specimen(s) Received: A: Imaged Thinprep Pap Test w/ Reflex HPV - Chief Radiology Cytologic Material Clinical History: Last Menstrual Period: 09/20/23 Menstrual History: Previous Negative Pap The Pap test is a screening test used to aid in the detection of cervical cancer and its precursors. It should not be the sole means by which malignant and premalignant lesions are diagnosed. Both false negative and false positive results may occur. It also has poor sensitivity for the detection of endometrial lesions and should not be used to evaluate suspected endometrial abnormalities. For these reasons it is most important to obtain Pap tests at regular intervals. The performance characteristics of some immunohistochemical stains, fluorescence in-situ hybridization tests and immunophenotyping by flow cytometry cited in this report (if any) were determined by the Surgical Pathology Department at [facility] as part of an ongoing quality assurance specialist program and in compliance with federally mandated regulations drawn from the Clinical Laboratory Improvement Act of 1988 (CLIA '88). Some of these tests rely on the use of analyte specific reagents and are subject to specific labeling requirements by the US Food and Drug Administration. Such diagnostic tests may only be performed in a facility that is certified by the Department of Health and Human Services as a high complexity laboratory under CLIA '88. The FDA has determined that such clearance or approval is not necessary. This test is used for clinical purposes. It should not be regarded as investigational or for research. Nevertheless, federal rules concerning the medical use of analyte specific reagents require that the following disclaimer be attached to the report: This test was developed and its performance characteristics determined by the Surgical Pathology Department [facility]. It has not been cleared or approved by the U. S. Food and Drug Administration. Lori Jose MD LAB CYTOLOGY [place] [address] [place] [address] from Last 3 Months or Most Recently Relevant to Health Maintenance Insurance [place], [place] [facility]PPO Address: [facility] [address] [place] [address] [facility]/PPO Address: [address] [address] [place] [address] [facility]/PPO Address: [address] [place] [address] Advance Directives For more information, please contact: [phone] * Full Code (Latest Code Status on File) Date Activated Date Inactivated Comments 07/28/2024 3:24 PM 07/29/2024 8:55 PM * Full Code Date Activated Date Inactivated Comments 07/28/2024 6:16 AM 07/28/2024 3:24 PM Full CPR i n case of cardiopulmonary arrest * Full Code Date Activated Date Inactivated Comments 01/28/2020 10:28 AM 01/30/2020 3:59 PM Care Teams Biodiesel Production Associate Relationship Specialty Start Date End Date Noble Dash MD [address] [place] [address] [place] [address] PCP - General 01/28/20 Ward Viera MD [address] [place] [address] [address] [facility] [place] [address] Terminal Block Assembler Obstetrics and Gynecology 01/29/20 Lori Jose MD [address] [place] [address] Terminal Block Assembler Obstetrics and Gynecology 07/29/24
--- OUTSIDE RECORDS SUMMARY | 2024-10-13 16:13 | XMS_ITS | Encounter Summary ---
Author Organization [facility] Healthcare Address [address] [place] [address] Care Team Providers Care Bailiff Name Role Phone Noble Dash MD Primary Care Provider + [phone] Ward Viera MD Unavailable [phone] Lori Jose MD Unavailable Encounter Details Date Type Department Care Team (Late st Contact Info) Description 11/27/2023 Orders Only [facility] [address] [place] [address] Scanning, Provider Social History Tobacco Use Types Packs/Day Years Used Date Smoking Tobacco: Never Smokeless Tobacco: Never Alcohol Use Standard Drinks/Week Comments Yes 1 (1 standard drink = 0.6 oz pur e alcohol) 1 X month AUDIT-C Answer Date Recorded Q1: How often do you have a drink containing alc ohol? Never 02/02/2020 Average Number of Drinks Not on file 020 Frequency of Binge Drinking Not on file 12/2019 Comments No Sex and Gender Information Value Date Recorded Sex Assigned at Not on file Legal Sex Female 12:35 PM ASSOCIATE PROFESSOR OF PATHOLOGY Gender Identity Not on file Sexual Orientation Not on file Occupation Industry Job Start Date Job End Date Shanae - kareem Not on file Not on file No t on file documented as of this encounter Plan of Treatment Not on file documented as of this encounter Procedures Procedure Name Priority Date/Time Associated Diagnosis Comments SCAN - LABS 11/27/2023 documented in this encounter Results * SCAN - LABS (11/27/2023) us Provider Scanning Final Result documented in this encounter Visit Diagnoses Not on filedocumented in this encounter Care Teams Bailiff Relationship Specialty Start Date End Date Noble Dash MD [facility] [place] [address] PCP - General 01/28/20 Ward Viera MD [address] [facility] [address] [place] [address] Maintenance Shop Clerk Obstetrics and Gynecology 01/29/20 Lori Jose MD [address] [place] [address] Maintenance Shop Clerk Obstetrics and Gynecology 07/29/24 documented as of this encounter
--- OUTSIDE RECORDS SUMMARY | 2024-10-13 16:13 | XMS_ITS | Clinical Summary ---
Author Organization [facility] Address [address] [place] [address] Phone Care Team Providers Care Bender Hand Name Role Phone Noble Dash MD Primary Care Provider [phone] Allergies No known active allergies Medications No known medications Active Problems No known active problems Social History Tobacco Use Types Packs/Day Years Used Date Smoking Tobacco: Never Smokeless Tobacco: Never Alcohol Use Standard Drinks/Week Comments Never 0 (1 standard drink = 0.6 oz pur e alcohol) AUDIT-C Answer Date Recorded Q1: How often do you have a drink containing alc ohol? Never 01/28/2020 Average Number of Drinks Not on file 020 Frequency of Binge Drinking Not on file 07/2019 Comments Unknown Sex and Gender Information Value Date Recorded Sex Assigned at Not on file Legal Sex Female 10:47 PM CDT Gender Identity Not on file Sexual Orientation Not on file Last Filed Vital Signs Vital Sign Reading Time Taken Comments Blood Pressure 134/74 01/28/2020 4:23 AM CDT Pulse 95 01/28/2020 4:26 AM CDT Temperature 37.2 C (99 F) 01/28/2020 3:00 AM CDT Respiratory Rate 18 01/28/2020 4:30 AM CDT Oxygen Saturation 99% 01/28/2020 4:26 AM CDT Inhaled Oxygen Concentration - - Weight 108.9 kg (240 lb) 01/28/2020 1:01 AM CDT Height 167.6 cm (5' 6 ) 01/28/2020 1:01 AM CDT Body Mass Index 38.74 01/28/2020 1:01 AM CDT Plan of Treatment Not on file Care Teams Bender Hand Relationship Specialty Start Date End Date Noble Dash MD [facility] [place] [address] PCP - General Residential Fee Appraiser 01/28/20
--- OUTSIDE RECORDS SUMMARY | 2024-10-13 16:13 | XMS_ITS | Referral Summary ---
Author Organization [facility] [address] Address [address] [place] [address] Phone Care Team Providers Care Development Engineer Name Role Phone Noble Dash MD Primary Care Provider + [phone] Ward Viera MD Unavailable [phone] Lori Jose MD Unavailable Encounters Date Type Department Care Team Description 09/09/2024 10:30 AM NON PROFIT FINANCIAL CONTROLLER Office Visit [facility] [address] [facility] [address] [place] [address] Lori Jose MD care and examination (Primary Dx) 07/28/2024 6:01 AM NON PROFIT FINANCIAL CONTROLLER - 07/29/2024 3:40 PM NON PROFIT FINANCIAL CONTROLLER Hospital Encounter [address] [id number] Lori Jose MD Spontaneous vaginal delivery [O80] (Primary Dx); Encounter for supervision of other normal , third trimester; 39 weeks gestation of [Z3A.39] Discharge Disposition: Discharge to home or self care 07/28/2024 12:47 PM NON PROFIT FINANCIAL CONTROLLER Anesthesia Event [facility] [address] [place] [address] Los Darby MD 07/17/2024 10:00 AM NON PROFIT FINANCIAL CONTROLLER Office Visit [facility] [address] [place] [address] Lori Jose MD Encounter for supervision of other normal , third trimester (Primary Dx) from Last 3 Months Allergies Active Allergy Reactions Criticality Noted Date [...] hand 11/11/2014 12/27/2023 Thoracic outlet syndrome 11/11/2014 Immunizations Immunization Administration Dates Next Due Influenza, Trivalent, Preser vative Free, Intramuscular 05/07/2024 MMR 01/30/2020(Deferred: Contraindic ation) Tdap 05/30/2024,01/29/2020 Varicella 07/29/2024 Social History Tobacco Use Types Packs/Day Years [...] 07/28/2024 How often do you attend chur or confucianism services? More than 4 times per year 07/28/2024 Do you belong to any clubs o r organizations such as taoism groups, unions, fraternal or athletic groups, or [...] staff should administer the PHQ-9) 0 07/28/2024 [facility] - Occupational [...] any time in the past [facility], were you homeless or living in a intermediate (including now)? No 07/28/2024 Personal Safety Answer Date Recorded Have you ever been in or are you currently in a harmful physical or emotional relationship or is someone making you feel afraid or unsafe? Denies 07/28/2024 Comments No Sex and Gender Information Value Date Recorded Sex Assigned at Not on file Legal Sex Female 12:35 PM NON PROFIT FINANCIAL CONTROLLER Gender Identity Not on file Sexual Orientation Not on file Occupation Industry Job Start Date Job End Date RN Not on file Not on file Not on file Last Filed Vital Signs Vital Sign Reading Time Taken Comments Blood Pressure 122/80 09/09/2024 10:18 AM NON PROFIT FINANCIAL CONTROLLER Pulse 74 07/29/2024 6:00 AM NON PROFIT FINANCIAL CONTROLLER Temperature 36.8 C (98.2 F) 07/29/2024 6:00 AM NON PROFIT FINANCIAL CONTROLLER Respiratory Rate 18 07/29/2024 6:00 AM NON PROFIT FINANCIAL CONTROLLER Oxygen Saturation 93% 07/28/2024 1:49 PM NON PROFIT FINANCIAL CONTROLLER Inhaled Oxygen Concentration - - Weight 131.5 kg (290 lb) 09/09/2024 10:18 AM NON PROFIT FINANCIAL CONTROLLER Height 165.1 cm (5' 5 ) 07/28/2024 6:31 AM NON PROFIT FINANCIAL CONTROLLER Body Mass Index 48.26 07/28/2024 6:31 AM NON PROFIT FINANCIAL CONTROLLER Plan of Treatment Not on file Procedures Procedure Name Priority Date/Time Associated Diagnosis Comments CBC WITHOUT DIFFERENTIAL Routine 07/29/2024 6:45 AM NON PROFIT FINANCIAL CONTROLLER BLOOD GAS, CORD ARTERIAL STAT 07/28/2024 1:37 PM NON PROFIT FINANCIAL CONTROLLER BLOOD GAS, CORD VENOUS STAT 07/28/2024 1:37 PM NON PROFIT FINANCIAL CONTROLLER ANESTHESIA EPIDURAL BLOCK Routine 07/28/2024 1:18 PM NON PROFIT FINANCIAL CONTROLLER ANTIBODY SCREEN STAT 07/28/2024 6:42 AM NON PROFIT FINANCIAL CONTROLLER ABO/RH STAT 07/28/2024 6:42 AM NON PROFIT FINANCIAL CONTROLLER CBC WITHOUT DIFFERENTIAL STAT 07/28/2024 6:42 AM NON PROFIT FINANCIAL CONTROLLER TYPE AND SCREEN STAT 07/28/2024 6:42 AM NON PROFIT FINANCIAL CONTROLLER RPR Routine 07/28/2024 6:42 AM NON PROFIT FINANCIAL CONTROLLER POCT URINE GLUCOSE AND PROTEIN Routine 07/17/2024 10:17 AM NON PROFIT FINANCIAL CONTROLLER Encounter for supervision of other normal , [...] (ABNORMAL) CBC without differential (07/29/2024 6:45 AM NON PROFIT FINANCIAL CONTROLLER) WBC 14.2(H) 3.8 - 9.9 K/cumm Hgb 10.3(L) 11.9 - 15.5 g/dL [facility] (SP) Hct 31.7(L) 35.6 - 45.5 % [facility] (SP) Plt 291 150 - 400 K/cumm [facility] (SP) MPV 10.2 9.1 - 12.3 fL [facility] ([facility]) RBC 3.92 3.90 - 5.20 M/cumm [facility] MCV 80.9(L) 81.3 - 96.4 fL [facility] ([facility]) MCH 26.3(L) 27.1 - 33.3 pg [facility] MCHC 32.5 32.3 - 35.7 g/dL [facility]) RDW CV 14.4 11.1 - 14.9 % [facility] ([facility]) RDW SD 41.9 35.7 - 48.1 fL [facility]) NRBC abs 0.00 0.00 - 0.01 K/cumm [facility] (SP) Blood 07/29/2024 6:45 AM NON PROFIT FINANCIAL CONTROLLER 07/29/2024 7:02 AM NON PROFIT FINANCIAL CONTROLLER us Lori Jose MD LAB BLOOD ORDERABLES Final Result Performing Organization Address [facility] de Phone Number LOKESH ANDRE (SP) 1 [facility] [place] [address] * Blood Gas, Cord Venous (07/28/2024 1:37 PM NON PROFIT FINANCIAL CONTROLLER) pH Cord Danny 7.41 pCO2 Cord Danny 34 mmHg [facility] pO2 Cord Danny 30 mmHg [facility] Base Excess Cord Danny -2 mmol/L [facility] HCO3 Cord Danny (Calc) 21 mmol/L [facility] O2 Sat Cord Danny (Louie) 66 % [facility] (SP) Comment: Interpretive Data No Reference Ranges Established Current Interpretive Data was last revised on 2018 Cord blood 07/28/2024 1:37 PM NON PROFIT FINANCIAL CONTROLLER 07/28/2024 1:41 PM NON PROFIT FINANCIAL CONTROLLER Lori Jose MD LAB BLOOD ORDERABLES Final Result Performing Organization Address City/[facility]/ZIP Co de Phone Number LOKESH ANDRE (SP) 1 [facility] [place] [address] * Blood Gas, Cord Arterial (07/28/2024 1:37 PM NON PROFIT FINANCIAL CONTROLLER) pH Cord Art 7.23 pCO2 Cord Art [...] on 2018 Cord blood 07/28/2024 1:37 PM NON PROFIT FINANCIAL CONTROLLER 07/28/2024 1:41 PM NON PROFIT FINANCIAL CONTROLLER us Lori Jose MD LAB BLOOD ORDERABLES Final Result [facility] (SP) 1 [facility] Department [place] [address] * Epidural Block (07/28/2024 1:18 PM NON PROFIT FINANCIAL CONTROLLER) Narrative Praveen Eastman CRNA - 07/28/2024 1:18 PM NON PROFIT FINANCIAL CONTROLLER Praveen Eastman CRNA 07/28/2024 1:18 PM Epidural Block Patient location: L&D End time: 07/28/2024 1:18 PM Reason for block: labor analgesia Staff: Supervising provider: Los Darby MD Placed by: PRESIDENT CEO & FOUNDER: Praveen Eastman CRNA Procedure prep: Preprocedure checklist: [...] patient tolerated procedure well with no complications Los Darby MD ANESTHESIA ORDERABLES Final Result * ABO/Rh (07/28/2024 6:42 AM NON PROFIT FINANCIAL CONTROLLER) Pathologist [facility] ABO/Rh O Positive Blood 07/28/2024 6:42 AM NON PROFIT FINANCIAL CONTROLLER 07/28/2024 6:52 AM NON PROFIT FINANCIAL CONTROLLER Narrative [facility] ([place]) - 07/28/2024 7:33 AM NON PROFIT FINANCIAL CONTROLLER Has the patient had Daratumumab or Isatuximab in the past 6 months?->Unknown Lori oJse MD LAB BLOOD BANK TEST O RDERABLES Final Result Performing Organization Address [facility] Co de Phone Number LOKESH ANDRE ([place]) 1 [facility] [place] [address] * RPR Blood (07/28/2024 6:42 AM NON PROFIT FINANCIAL CONTROLLER) [facility] RPR Nonreactive Nonreactive Comment:Testing performed by : [facility], [address] [place] [address], [id number] Blood 07/28/2024 6:42 AM NON PROFIT FINANCIAL CONTROLLER 07/28/2024 10:10 AM NON PROFIT FINANCIAL CONTROLLER Lori Jose MD LAB MICROBIOLOGY - GE NERAL ORDERABLES Final Result Performing Organization Address [facility] Co de Phone Number LOKESH JES ([place]) 1 [facility] [place] [address] * (ABNORMAL) CBC without differential (07/28/2024 6:42 AM NON PROFIT FINANCIAL CONTROLLER) Pathologist [facility] WBC 12.1(H) 3.8 - 9.9 K/cumm Hgb 11.4(L) 11.9 - 15.5 g/dL [facility] (SP) Hct 35.3(L) 35.6 - 45.5 % [facility] (SP) Plt 315 150 - 400 K/cumm [facility] (SP) MPV 10.1 9.1 - 12.3 fL [facility] ([facility]) RBC 4.45 3.90 - 5.20 M/cumm [facility] (SP) MCV 79.3(L) 81.3 - 96.4 fL [facility] (SP) MCH 25.6(L) 27.1 - 33.3 pg [facility] ([facility]) MCHC 32.3 32.3 - 35.7 g/dL [facility] ([facility]) RDW CV 13.9 11.1 - 14.9 % [facility] ([facility]) RDW SD 40.3 35.7 - 48.1 fL [facility] ([facility]) NRBC abs 0.00 0.00 - 0.01 K/cumm [facility] ([facility]) Blood 07/28/2024 6:42 AM NON PROFIT FINANCIAL CONTROLLER 07/28/2024 6:52 AM NON PROFIT FINANCIAL CONTROLLER Lori Jose MD LAB BLOOD ORDERABLES Final Result Performing Organization Address City/[facility]/ZIP Co de Phone Number LOKESH ANDRE (SP) 1 [facility] [place] [address] * Antibody screen (07/28/2024 6:42 AM NON PROFIT FINANCIAL CONTROLLER) [place], indirect, Gel Interpretation Negative ABSC Blood 07/28/2024 6:42 AM NON PROFIT FINANCIAL CONTROLLER 07/28/2024 6:52 AM NON PROFIT FINANCIAL CONTROLLER Narrative [facility] ([facility]) - 07/28/2024 7:33 AM NON PROFIT FINANCIAL CONTROLLER Has the patient had Daratumumab or Isatuximab in the past 6 months?->Unknown Lori Jose MD LAB BLOOD BANK TEST O RDERABLES Final Result [facility]OKESH ANDRE (SP) 1 [facility] [place] [address] * (ABNORMAL) POCT urine glucose and protein (07/17/2024 10:17 AM NON PROFIT FINANCIAL CONTROLLER) Glucose, ur, POC Negative Negative MG/DL Protein, ur, POC Trace(A) Negative Lot Number [id number] Urine 07/17/2024 10:1 7 AM NON PROFIT FINANCIAL CONTROLLER Lori Jose MD POINT OF CARE TEST OR DERABLES Final Result * Hepatitis C antibody Blood (12/27/2023 11:21 AM CDT) Pathologist [facility] Hep C Ab Nonreactive Nonreactive Comment: Interpretive [...] last revised on 2019. Testing performed by: [facility], [address] [place] [address]., [id number] Blood 12/27/2023 11:2 1 AM CDT 12/27/2023 5:58 PM CDT Lori Jose MD LAB MICROBIOL OGY - GENERAL ORDERABLES Edited Result - Final [facility] [place] [address] * Pap with reflex to High Risk HPV and Genotyping (Cytology Component) (10/12/2023 9:25 AM CDT) Thin prep (Pap test) 10/12/2023 9:25 AM CDT 10/12/2023 9:25 AM CDT Narrative PATHOLOGY - 10/16/2023 1:56 PM CDT [facility] Department of Pathology [address] [place] [id number] Final Report Note to Patients: This [...] the details. Patient Name: JAKE DALTON Address: [address] [place] [address]- Gender: F : 2000 (Age: 23) Service: Location: [facility] : [id number] [facility] #: [id number] Patient Type: SPECIMEN Taken: 10/12/2023 Received: 10/12/2023 Accessioned:: 10/15/2023 Reported: 10/16/2023 Physician(s): MD Lori Rodgers MD Diagnosis: SOURCE OF SPECIMEN Imaged Thinprep Pap Test w/ Reflex HPV - Art Historian Cytologic Material: STATEMENT OF ADEQUACY - Satisfactory for evaluation; endocervical/transformation zone component present GENERAL CATEGORIZATION: - Negative for intraepithelial lesion or malignancy MONTANA Pelaez(ASCP) Report Electronically Reviewed and Signed Out By MONTANA Pelaez(ASCP) 10/16/2023 13:56:06Specimen(s) Received: A: Imaged Thinprep Pap Test w/ Reflex HPV - Art Historian Cytologic Material Clinical History: Last Menstrual Period: [...] determined by the Surgical Pathology Department at [facility] as part of an ongoing inspector quality assurance program and in compliance with federally mandated [...] characteristics determined by the Surgical Pathology Department [facility]. It has not been cleared or approved by the U. S. Food and Drug Administration. Lori Jose MD LAB CYTOLOGY ORDERABL ES Final Result [facility] [address] [place] [address] from Last 3 Months or Most Recently Relevant to Health Maintenance Insurance [place], [place] [facility] CHO[facility]US [facility] HMO/PPO Address: [facility] [address] [place] [address] [facility] CHOICE PLUS [facility] HMO/PPO Address: [address] [address] [place] [address] [facility] CHOICE PLUS [facility] HMO/PPO Address: [address] [place] [address] Advance Directives For more information, please contact: [phone] * Full Code (Latest Code Status on File) Date Activated Date Inactivated Comments 07/28/2024 3:24 PM 07/29/2024 8:55 PM * Full Code Date Activated Date Inactivated Comments 07/28/2024 6:16 AM 07/28/2024 3:24 PM Full CPR i n case of cardiopulmonary arrest * Full Code Date Activated Date Inactivated Comments 01/28/2020 10:28 AM 01/30/2020 3:59 PM Care Teams Development Engineer Relationship Specialty Start Date End Date Noble Dash MD [address] [place] [address] [place] [address] PCP - General 01/28/20 Ward Viera MD [address] [place] [address] [address] [place] [address] Belt Puncher Obstetrics and Gynecology 01/29/20 Lori Jose MD [address] [place] [address] [place] [address] Belt Puncher Obstetrics and Gynecology 07/29/24
[2024-10-13 18:49] LABS: Hematocrit 38.7 % (37.0-47.0); Hemoglobin 11.8 g/dL (12.0-15.0); Mean Corpuscular HGB Conc 30.5 g/dl (32-36); Mean Corpuscular Hemoglobin 25.8 pg (26-34); Mean Corpuscular Volume 84.5 fl (80-100); Mean Platelet Volume 9.6 fl (7.4-10.4); Platelet Count Result 486 k/mm3 (150-375); Red Blood Count 4.58 M/mm3 (4.2-5.4); Red Cell Distribution Width 14.4 % (11.5-14.5); White Blood Count 9.2 K/mm3 (4.5-10.0)
[2024-10-13 19:14] LABS: Iron 40 ug/dL (37-170)
[2024-10-13 19:23] LABS: Percent Iron Saturation 7 % (20-50)
[2024-10-13 19:30] LABS: Alanine Aminotransferase 20 U/L (6-35); Albumin Level 4.4 g/dL (3.5-5.1); Alkaline Phosphatase 98 U/L (38-126); Anion Gap 10 mmol/L (4-12); Aspartate Amino Transferase 62 U/L (14-36); Bilirubin,Total 0.4 mg/dL (0.2-1.3); Blood Urea Nitrogen 13 mg/dL (7-17); Calcium 9.4 mg/dL (8.4-10.2); Carbon Dioxide 27 mmol/L (22-30); Chloride 102 mmol/L (98-107); Cholesterol 199 mg/dL (0-200); Estimated Glomerular Filt Rate > 60; Glucose 86 mg/dL (65-110); HDL Direct 60 mg/dL; Potassium 4.1 mmol/L (3.4-5.0); Sodium 139 mmol/L (137-145); Triglycerides 161 mg/dL (<150)
[2024-10-13 19:45] LABS: LDL Cholesterol Direct 90 mg/dL
[2024-10-13 19:50] LABS: Ferritin 7.26 ng/mL (6.24-137)
[2024-10-13 21:44] LABS: Folic Acid 2.7 ng/mL (2.76->20)
== END 2024-10-13 13:41 | disposition home or self-care (01) ==
LOC: ANHBWCLAB 13:41
PROVIDERS: PCP Nurse Practitioner Adult Health; Visit Provider Nurse Practitioner Adult Health
DX: D64.9 Anemia, unspecified (principal); Z13.9 Encounter for screening, unspecified
CPT/HCPCS: 36415; 80053; 80061; 82607; 82728; 82746; 83540; 83550; 84443; 85027

== ENCOUNTER 2024-11-10 11:43 | Outpatient (CLI) | payer OTHER, SELFPAY ==
--- OUTSIDE RECORDS SUMMARY | 2024-11-10 13:16 | XMS_ITS | Referral Summary ---
Author Organization [facility] [address] [place] [address] Phone Care Team Providers Care Thiokol Operator Name Role Phone Noble Dash MD Primary Care Provider + [phone] Ward Viera MD Unavailable [phone] Lori Jose MD Unavailable Encounters Date Type Department Care Team Description 09/09/2024 10:30 AM CHILD CARE CENTRE DIRECTOR Office Visit [facility] [address] [place] [address] Lori Jose MD care and examination (Primary Dx) from Last 3 Months Allergies [...] 6 (six) hours as needed for pain Active Additional Information Patient not taking.Reported on [...] week 07/28/2024 How often do you attend [facility] or latter-day services? More than 4 times per year 07/28/2024 Do you belong to any clubs o r organizations such as judaism groups, unions, fraternal or athletic groups, or [...] staff should administer the PHQ-9) 0 07/28/2024 [facility] Occupat ional Health - Occupational Stress [...] any time in the past 12 m [facility], were you homeless or living in a usp (including now)? No 07/28/2024 Personal Safety Answer Date Recorded Have you ever been in or are you currently in a harmful physical or emotional relationship or is someone making you feel afraid or unsafe? Denies 07/28/2024 Comments No Sex and Gender Information Value Date Recorded Sex Assigned at Not on file Legal Sex Female 12:35 PM CHILD CARE CENTRE DIRECTOR Gender Identity Not on file Sexual Orientation Not on file Occupation Industry Job Start Date Job End Date RN Not on file Not on file Not on file Last Filed Vital Signs Vital Sign Reading Time Taken Comments Blood Pressure 122/80 09/09/2024 10:18 AM CHILD CARE CENTRE DIRECTOR Pulse 74 07/29/2024 6:00 AM CHILD CARE CENTRE DIRECTOR Temperature 36.8 C (98.2 F) 07/29/2024 6:00 AM CHILD CARE CENTRE DIRECTOR Respiratory Rate 18 07/29/2024 6:00 AM CHILD CARE CENTRE DIRECTOR Oxygen Saturation 93% 07/28/2024 1:49 PM CHILD CARE CENTRE DIRECTOR Inhaled Oxygen Concentration - - Weight 131.5 kg (290 lb) 09/09/2024 10:18 AM CHILD CARE CENTRE DIRECTOR Height 165.1 cm (5' 5 ) 07/28/2024 6:31 AM CHILD CARE CENTRE DIRECTOR Body Mass Index 48.26 07/28/2024 6:31 AM CHILD CARE CENTRE DIRECTOR Plan of Treatment Not on file Procedures Procedure Name Priority Date/Time Associated Diagnosis Comments HEPATITIS C ANTIBODY Routine 12/27/2023 11:21 AM CDT Encounter for supervision of other normal in first trimester 8 weeks gestation of PAP WITH REFLEX TO HIGH RISK HPV Routine 10/12/2023 9:25 AM CDT Screening for malignant neoplasm of the cervix from Last 3 Months or Most Recently Relevant to Health Maintenance Results * Hepatitis C antibody Blood (12/27/2023 11:21 [...] last revised on 2019. Testing performed by: [facility], [address] [place] [address]., [address] Blood 12/27/2023 11:2 1 AM CDT 12/27/2023 5:58 PM CDT Lori Jose MD LAB MICROBIOL OGY - GENERAL ORDERABLES Edited Result - Final [facility] [address] Department [place] [address] * Pap with reflex to High Risk HPV and Genotyping (Cytology Component) (10/12/2023 9:25 AM CDT) Thin prep (Pap test) 10/12/2023 9:25 AM CDT 10/12/2023 9:25 AM CDT Narrative PATHOLOGY - 10/16/2023 1:56 PM CDT [facility] Department of Pathology [address] [place] [id number] Final Report Note to Patients: This [...] questions and explain the details. Patient Name: JESSICA DALTON Address: [address] [place] [address]- Gender: F : 2000 (Age: 23) Service: Location: [facility] #: [id number] Patient Type: SPECIMEN Taken: 10/12/2023 Received: 10/12/2023 Accessioned:: 10/15/2023 Reported: 10/16/2023 Physician(s): MD Lori Rodgers MD Diagnosis: SOURCE OF SPECIMEN Imaged Thinprep Pap Test w/ Reflex HPV - [employer] Senior Executive Cytologic Material: STATEMENT OF ADEQUACY - Satisfactory for evaluation; endocervical/transformation zone component present GENERAL CATEGORIZATION: - Negative for intraepithelial lesion or malignancy MONTANA Pelaez(ASCP) Report Electronically Reviewed and Signed Out By MONTANA Pelaez(ASCP) 10/16/2023 13:56:06Specimen(s) Received: A: Imaged Thinprep Pap Test w/ Reflex HPV - Solution [employer] Senior Executive Cytologic Material Clinical History: Last Menstrual Period: [...] determined by the Surgical Pathology Department at [facility] as part of an ongoing quality control head program and in compliance with federally mandated [...] characteristics determined by the Surgical Pathology Department [facility]. It has not been cleared or approved by the U. S. Food and Drug Administration. Lori Jose MD LAB CYTOLOGY ORDERABL ES Final Result PATHOLOGY [address] [place] [address] from Last 3 Months or Most Recently Relevant to Health Maintenance Insurance [facility] CHO[facility] PLUS [facility] PLUS [facility] PLUS Advance Directives For more information, please contact: [phone] * Full Code (Latest Code Status on File) Date Activated Date Inactivated Comments 07/28/2024 3:24 PM 07/29/2024 8:55 PM * Full Code Date Activated Date Inactivated Comments 07/28/2024 6:16 AM 07/28/2024 3:24 PM Full CPR i n case of cardiopulmonary arrest * Full Code Date Activated Date Inactivated Comments 01/28/2020 10:28 AM 01/30/2020 3:59 PM Care Teams Thiokol Operator Relationship Specialty Start Date End Date Noble Dash MD [address] [place] [address] [place] [address] PCP - General 01/28/20 Ward Viera MD [address] [place] [place] [address] [address] [place] [address] Frame Stylist Obstetrics and Gynecology 01/29/20 Lori Jose MD [address] [place] [address] Frame Stylist Obstetrics and Gynecology 07/29/24
--- OUTSIDE RECORDS SUMMARY | 2024-11-10 13:16 | XMS_ITS | Data Portability ---
Author Organization [place] [facility] [employer], Main Office Address [address] [place] [address] Assessment No assessment recorded. Plan of Treatment Reminders Order Date Submit Date Provider Last Modified By Organization Details Last Modified Time Details Appointments None recorded. Lab None recorded. Referral dermatologi st referral - Please call the pt to make an appointment . 2022 023 [email or web address] [facility], [address] [place] [address], [address], 3 16:18:53 Procedures None recorded. Surgeries None recorded. Imaging None recorded. Medication Orders ciprofloxac in 500 mg tablet 2022 023 [id number], [address], [place], [place], [id number], 3 13:05:18 losartan 100 mg tablet 2022 023 [facility] #[id number], [address], [place], [place], [id number], 3 14:34:37 Wegovy 0.25 mg/0.5 mL subcutaneou s pen injector [address] [place] [address] [employer] #[id number], [address], [place], [place], [id number], 3 13:00:55 Patient TargetsNo targets recorded. Patient InstructionsNo instructions recorded. Reason for Referral Regulatory Agency Director Referral for C ystic acne Please call the pt to make an appointment. Referring Physician: Noble Dash, Family Medicine, Encounter Date: 11/15/2022 Results Created Date Observation Date Name Description Value Unit Range Abnormal Flag Note LastModifiedBy Organization Detail LastModifiedTime 09/07/1909/07/2022 rapid strep group A, throa t STREP A negati ve Not Available [facility] [address] , [address], [place], [address], 09/07/2022 11:18:08 05/17/20 22 XR, chest , [facility] view [facility] [address] [id number] [phone] Patien t Name: CIRO DOLL Amadou Martinez Access ion #: [id number] Sex: F : 1999 2 Locati on: RA2 Attend ing Physic monika: ELKHAT IB, RUNDA Orderi ng Physic monika: ELKHAT IB, RUNDA Exam Date: 2021 9:59 AM Exam Name: XR CHEST 2V Admitt ing Diagno sis(es ): RADIOL OGY REPORT - FINAL EXAM: XR CHEST 2V HISTOR Y: cough chest tightn ess COMPAR NILAM: None. TECHNI QUE: Two views of the chest were perfor med. FINDIN GS: No pneumo thorax , consol idativ e infilt rates, pleura l effusi ons, or pulmon tyler edema. The heart is not enlarg ed. IMPRES MARIPOSA: Unrema rkable 2 view chest. Page 1 of 2 [facility] Patijulio cesar t Name: CIRO DOLL L Access ion #: [id number] Sex: F : 1999 2 Exam Date: 2021 9:59 AM Exam Name: XR CHEST 2V Admitt ing Diagno sis(es ): Create d and electr onical ly signed by: Darnell godinez MD Signed Date: 2021 10:20 AM (CT) Dictat ed by: Darnell godinez MD DD: 2021 10:20 AM (CT) DT: 2021 10:20 AM (CT) Page 2 of 2 [id number] [facility] (Imaging) [address], [place], [address], 09/27/2022 02:52:03 05/17/20 22 05/17/2022 XR, chest , 2 view No observ ation record ed. [id number] [facility] [address], [place], [address], 09/27/2022 02:52:03 07/17/20 22 07/15/2022 imagi ng/di agnos tic resul t No observ ation record ed. [id number] [facility] [address], [place], [address], 09/27/2022 02:52:03 04/24/20 23 04/24/2023 XR, shoul zahra, 2 or more view No observ ation record ed. [address], [place], [address], 04/26/2023 08:39:04 Result Notes None recorded. Problems Name Problem SNOMED Code Status Onset Date Resolution Date Notes Provider Name and Address Organization Details Recorded Time Acute sinusitis 19156620 Active Not Available [employer] 3 02:45:36 Carpal tunnel syndrome 04975039 Active Not Available [employer] 3 02:45:36 Morbid obesity 767993980 Active 2022 Noble Dash MD [address] [facility] [address], [place], [address] , [employer] 3 14:26:40 Cystic acne 00791035 Active 2022 Noble Dash MD [address] [facility] [address], [place], [address] , [place] [facility] [employer] 3 14:29:15 Migraine 25312315 Active 2022 Noble Dash MD [address] [facility] [address], [place], [address] , [facility] [employer] 3 14:29:55 Essential hypertension 14939468 Active 2022 Noble Dash MD [address] [address], [place], [address] , [facility] [employer] 3 14:33:17 Acute urinary tract infection 916268979 Active 2022 Noble Dash MD [address], [address] , [facility] [employer] 3 17:25:41 COVID-19 995360177 Active 2022 Noble Dash MD [address], [address] , [facility] [employer] 3 09:33:11 Irritable bowel syndrome with diarrhea 467929535 Active 2023 Carmen Holm RN [facility], [facility] [employer] 4 09:29:28 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 Procedures Surgical History None recorded. Imaging Results Imaging Date Name Status LastModified by [facility] Details LastModified Time 07/15/2022 imaging/amandeep gnostic result completed [id number] [facility] [address], [place], [address], 09/27/2022 02:52:03 05/17/2022 XR, chest, 2 view completed [id number] [facility] (Imaging) [address] [place], [address], 09/27/2022 02:52:03 05/17/2022 XR, chest, 2 view completed [id number] [address] , [place], [address], 09/27/2022 02:52:03 04/24/2023 XR, shoulder, 2 or more view completed [address], [place], [address], 04/26/2023 08:39:04 Procedure Notes None recorded. Medical Equipment None Reported. Allergies No known drug allergies Medications Name Sig Start Date Stop Date Status Note LastModified by Organization Details LastModified Time Prescriptio n - Prior Authorizati on Request 07/18 completed Not Available Not Available Not Available amoxicillin 500 mg capsule TAKE ONE CAPSULE BY MOUTH THREE TIMES DAILY UNTIL ALL TAKEN 05/17 completed Not Available Not Available Not Available promethazin e-DM 6.25 mg-15 mg/5 mL oral syrup Take 5 mL every 4 hours by oral route as needed for 10 days. 2023 active Not Available Not Available Not Avai lable clarithromy ken 250 mg tablet Take 1 tablet every 12 hours by oral route for 10 days. active Not Available Not Available No t Available azithromyci n 250 mg tablet TAKE DIRECTED 11/15 completed Not Available Not Available Not Available hydrocodone 5 mg-acetamin ophen 325 mg tablet TAKE 1 TO 2 TABLETS BY MOUTH EVERY 4 HOURS NEEDED FOR PAIN 11/15 completed Not Available Not Available Not Available rizatriptan 10 mg tablet TAKE 1 TABLET BY MOUTH AT ONSET OF HEADACHE. MAY REPEAT IN 2 HOURS. MAX 2/24 HOURS active Not Available Not Available No t Available clindamycin HCl 150 mg capsule Take 1 capsule every 6 hours by oral route for 10 days. 2023 active Not Available Not Available Not Avai lable phentermine 37.5 mg tablet Take 1 tablet every day by oral route. active Not Available Not Available No t Available acetaminoph en 300 mg-codeine 30 mg tablet active Not Available Not Available Not Available tretinoin 0.05 % topical cream active Not Available Not Available Not Available ciprofloxac in 500 mg tablet TAKE 1 TABLET BY MOUTH EVERY 12 HOURS FOR 10 DAYS active Not Available Not Available No t Available doxycycline monohydrate 100 mg tablet active Not Available Not Available Not Available ondansetron 8 mg disintegrat ing tablet active Not Available Not Available N ot Available Depo-Industrial Tractor Driver a 150 mg/mL intramuscul ar suspension Inject 1 mL every 3 months by intramusc ular route. 06/23 completed Not Available Not Available Not Available benzonatate 100 mg capsule Take 1 capsule 3 times a day by oral route. active Not Available Not Available No t Available ferrous sulfate 325 mg (65 mg iron) tablet TK 1 T PO QD 10/18 completed Not Available Not Available Not Available estradiol 2 mg tablet active Not Available Not Available No t Available ibuprofen 600 mg tablet active Not Available Not Available Not Available methylpredn isolone 4 mg tablets in a dose pack FOLLOW PACKAGE DIRECTION S 07/18 completed Not Available Not Available Not Available albuterol sulfate HFA 90 mcg/actuati on aerosol inhaler INHALE 2 PUFFS BY MOUTH EVERY 4 HOURS NEEDED 11/15 completed Not Available Not Available Not Available losartan 100 mg tablet TAKE 1 TABLET BY MOUTH EVERY DAY active Not Available Not Available No t Available clindamycin 1 % lotion 07/18 completed Not Available Not Available Not Available Tri-Sprinte c (28) 0.18 mg(7)/0.215 mg(7)/0.25 mg(7)-0.035 mg tablet Take 1 tablet every day by oral route. active Not Available Not Available No t Available Aczone 5 % topical gel active Not Available Not Available Not Available SulfaCleans e 8-4 8 %-4 % topical suspension active Not Available Not Available N ot Available Nexplanon 68 mg subdermal implant Inject by subcutane ous route. 2021 active Not Available Not Available Not Avai lable Fluzone 3836-7309 45 mcg (15 mcg x 3)/0.5 mL intramuscul ar suspension active Not Available Not Available N ot Available Wegovy 0.25 mg/0.5 mL subcutaneou s pen injector Inject by subcutane ous route for 28 days. 07/18 completed Not Available Not Available Not Available Vitals Date Recorded Body height Body mass index (BMI) Body weight Body temperature Heart rate Oxygen saturation Oxygen saturation in Arterial blood by Pulse oximetry Systolic blood pressure Diastolic blood pressure Provider Name and Address Organization Details Last Updated DateTime 3 167.64 cm 49.7 kg/m2 468504. 45 g 98.1 [degF] 120 /min 98 % 98 % 140 mm[Hg] 100 mm[Hg] MAURICE Christina [facility] [employer] 3 14:10:59 Date Recorded Body mass index (BMI) Body height Oxygen saturation Oxygen saturation in Arterial blood by Pulse oximetry Heart rate Body temperature Body weight Systolic blood pressure Diastolic blood pressure Provider Name and Address Organization Details Last Updated DateTime 1 41.2 kg/m2 167.64 cm 97 % 97 % 87 /min 97 [degF] 217284. 05 g 120 mm[Hg] 86 mm[Hg] Not Available [facility] 3 02:43:25 Date Recorded Body mass index (BMI) Body height Oxygen saturation Oxygen saturation in Arterial blood by Pulse oximetry Heart rate Body temperature Body weight Systolic blood pressure Diastolic blood pressure Provider Name and Address Organization Details Last Updated DateTime 2 47.6 kg/m2 167.64 cm 98 % 98 % 91 /min 98.1 [degF] 898301. 75 g 148 mm[Hg] 100 mm[Hg] Not Available [facility] 3 02:43:25 Date Recorded Body height Body mass index (BMI) Body weight Body temperature Heart rate Oxygen saturation Oxygen saturation in Arterial blood by Pulse oximetry Systolic blood pressure Diastolic blood pressure Provider Name and Address Organization Details Last Updated DateTime 3 167.64 cm 49.7 kg/m2 305041. 45 g 97.8 [degF] 75 /min 98 % 98 % 132 mm[Hg] 86 mm[Hg] Frances Granado MA [facility] [employer] 3 13:00:33 Social History None recorded. Functional Status None recorded. Mental Status None recorded. Family History Nothing Reported. Medical History No medical history recorded. Gynecological HistoryNo gynecological history recorded. Obstetrics History GPAL:G 0 P 0 0 0 0 Immunizations Vaccine Type Date Status Note Provider Nam e and Address Organization Details Recorded Time meningococcal MCV4P 7 completed Not Available [facility] 09/27/2022 02:51:31 Influenza, split virus, quadrivalent, PF 7 completed Not Available [facility] 09/27/2022 02:51:32 Past Encounters Encounter ID Performer Location Encounter Start Date Encounter Closed Date Diagnosis/Indication Diagnosis SNOMED-CT Code Diagnosis ICD10 Code Diagnosis Note [id number] [facility] [place] [address] [place] [address] 10/22/2020 00:00:00 10/23/2020 11:42:08 [id number] [facility] [place] [address] [place] [address] 05/17/2022 00:00:00 05/17/2022 12:56:01 [id number] [facility] [place] [address] [facility] [place] [address] 09/07/2022 00:00:00 09/07/2022 14:08:27 [id number] Noble Dash MD [facility] [place] [address] [facility] [place] [address] [address] 11/15/2022 14:02:48 11/15/2022 14:38:37 Morbid obesity 603058947 E66.01 1 month f/u Cystic acne 71037365 L70 .0 Migraine 11101120 G43.[address] [facility] samples given Essential hypertension 72698106 I10 Watch salt in diet. Monitor BP away from here. Recheck BP 140/100 Will start losartan. F/u in 1 month [id number] HERVE Gates [facility] [place] [facility] [address] [facility] [place] [address] 07/18/2023 12:49:09 07/18/2023 13:29:07 Acute sinusitis 85635876 J01.90 Health Concerns Section Related Observation LastModified by Organization Detai ls LastModified Time None Recorded Concern Status LastModified by Organization Details LastModified Time None Recorded Advance Directives Directive None Recorded Payers Encounter Date Sequence Insurance Name Policy Number Policy Glover Covered Member ID Glover Member ID Guarantor Name 11/15/2022 1 [facility] [id number] Radha Sanchez [id number] 07/18/2023 1 [facility] [id number] Radha Sanchez [id number] Notes Date Note Type Note Provider Name and Address Organization Details Recorded Time 11/15/2022 text/html Here today c/o weight gain. Is not losing weight and has plateaued. Has acne and is painful. Has not taken anything for acne other than over the counter creams. Tried phentermine before but then stopped working.Her BP is a little high. There is fmhx of HTN and has headaches 3 times a week. Has migraines. Has them 3 times a week. Noble Dash MD [address], [place], [address], [employer] 11/15/2022 20:31:57 07/18/2023 text/html sinus pressure , no fever HERVE Gates [address], [place], [address], [employer] 07/28/2023 17:19:27 OBGyn Episode No OBEpisode recorded.
--- OUTSIDE RECORDS SUMMARY | 2024-11-10 13:16 | XMS_ITS | Clinical Summary ---
Author Organization [facility] [email or web address] Address [address] [facility] [address] Phone Care Team Providers Care Electric Crane Operator Name Role Phone Noble Dash MD Primary Care Provider + [phone] Ward Viera MD Unavailable [phone] Lori Jose MD Unavailable [phone] Allergies Active Allergy Reactions Criticality Noted Date [...] Department Care Team Description 09/09/2024 10:30 AM TANK PUMPER Office Visit [facility] [address] [place] [address] Lori Jose MD care and examination (Primary Dx) from Last 3 Months Immunizations Immunization Administration Dates Next Due Influenza, Trivalent, Preser vative Free, Intramuscular 05/07/2024 MMR 01/30/2020(Deferred: Contraindic ation) Tdap 05/30/2024,01/29/2020 Varicella 07/29/2024 Surgical History Surgery Date Site/Laterality Comments LAPAROSCOPIC CHOLECYSTECTOMY 07/30/2021 - 07/29/2022 Medical History Medical History Date Comments Thoracic outlet syndrome 2015 Family History Medical History Relation Name Comments [...] How often do you attend chur or buddhism services? More than 4 times per year 07/28/2024 Do you belong to any clubs o r organizations such as yazdanism groups, unions, fraternal or athletic groups, or [...] staff should administer the PHQ-9) 0 07/28/2024 [facility] - Occupational Stress Questionnaire Answer Date Recorded [...] any time in the past 12 m onths, were you homeless or living in a snf (including now)? No 07/28/2024 Personal Safety Answer Date Recorded Have you ever been in or are you currently in a harmful physical or emotional relationship or is someone making you feel afraid or unsafe? Denies 07/28/2024 Comments No Sex and Gender Information Value Date Recorded Sex Assigned at Not on file Legal Sex Female 12:35 PM TANK PUMPER Gender Identity Not on file Sexual Orientation [...] F Vag-Sp ont None N Livin g CHAR R,GIR LKAIT HETAL gross, Evan Morrison MD Complications:Other (Comment ) Delivery Location:[facility] ER 2023 Term 39w 2d 0h 51m 0h 35m/0h 10m/0h 06m 3.302 kg (7 lb 4.5 oz) M Vagina l Epidur al N Livin g 9 9 Nathan Rafael Jefferson m, Fany webber MD Complications:None Delivery Location:[facility] ([facility]) Comments [address] - labor, in the ED for unknown , no care. 2. 2023 - elective pitocin induction. Last Filed Vital Signs Vital Sign Reading Time Taken Comments Blood Pressure 122/80 09/09/2024 10:18 AM TANK PUMPER Pulse 74 07/29/2024 6:00 AM TANK PUMPER Temperature 36.8 C (98.2 F) 07/29/2024 6:00 AM TANK PUMPER Respiratory Rate 18 07/29/2024 6:00 AM TANK PUMPER Oxygen Saturation 93% 07/28/2024 1:49 PM TANK PUMPER Inhaled Oxygen Concentration - - Weight 131.5 kg (290 lb) 09/09/2024 10:18 AM TANK PUMPER Height 165.1 cm (5' 5 ) 07/28/2024 6:31 AM TANK PUMPER Body Mass Index 48.26 07/28/2024 6:31 AM TANK PUMPER Plan of Treatment Health Maintenance Due Date [...] last revised on 2019. Testing performed by: [facility], [address] [place] [address]., [id number] Blood 12/27/2023 11:2 1 AM CDT 12/27/2023 5:58 PM CDT us Lori Jose MD LAB MICROBIOL OGY - GENERAL ORDERABLES Edited Result - Final [facility] [id number] [facility] Department [place] [address] * Pap with reflex to High Risk HPV and Genotyping (Cytology Component) (10/12/2023 9:25 AM CDT) Thin prep (Pap test) 10/12/2023 9:25 AM CDT 10/12/2023 9:25 AM CDT Narrative PATHOLOGY CH - 10/16/2023 1:56 PM CDT [facility] Department of Pathology [address] [place] [id number] Final Report Note to Patients: This report [...] the details. Patient Name: JAKE DALTON Address: [address] [place] [address]- Gender: F : 2000 (Age: 23) Service: Location: [facility] #: [id number] Patient Type: SPECIMEN Taken: 10/12/2023 Received: 10/12/2023 Accessioned:: 10/15/2023 Reported: 10/16/2023 Physician(s): MD Lori Rodgers MD Diagnosis: SOURCE OF SPECIMEN Imaged Thinprep Pap Test w/ Reflex HPV - Dike Supervisor Cytologic Material: STATEMENT OF ADEQUACY - Satisfactory for evaluation; endocervical/transformation zone component present GENERAL CATEGORIZATION: - Negative for intraepithelial lesion or malignancy MONTANA Pelaez(ASCP) Report Electronically Reviewed and Signed Out By MONTANA Pelaez(ASCP) 10/16/2023 13:56:06Specimen(s) Received: A: Imaged Thinprep Pap Test w/ Reflex HPV - Dike Supervisor Cytologic Material Clinical History: Last Menstrual Period: [...] determined by the Surgical Pathology Department at [facility] as part of an ongoing quality improvement specialist program and in compliance with federally [...] characteristics determined by the Surgical Pathology Department [facility]. It has not been cleared or approved by the U. S. Food and Drug Administration. Lori Jose MD LAB CYTOLOGY ORDERABL ES Final Result PATHOLOGY [address] [place] [address] from Last 3 Months or Most Recently Relevant to Health Maintenance Insurance [facility] [place] [address] [facility] [employer] [place] [id number] [facility] [employer] Advance Directives For more information, please contact: [phone] * Full Code (Latest Code Status on File) Date Activated Date Inactivated Comments 07/28/2024 3:24 PM 07/29/2024 8:55 PM * Full Code Date Activated Date Inactivated Comments 07/28/2024 6:16 AM 07/28/2024 3:24 PM Full CPR i n case of cardiopulmonary arrest * Full Code Date Activated Date Inactivated Comments 01/28/2020 10:28 AM 01/30/2020 3:59 PM Care Teams Electric Crane Operator Relationship Specialty Start Date End Date Noble Dash MD [address] [place] [address] [place] [address] PCP - General 01/28/20 Ward Viera MD [address] [place] [address] [address] [place] [address] Scrap Metal Processing Worker Obstetrics and Gynecology 01/29/20 Lori Jose MD [address] [place] [address] Scrap Metal Processing Worker Obstetrics and Gynecology 07/29/24
--- OUTSIDE RECORDS SUMMARY | 2024-11-10 13:16 | XMS_ITS | Encounter Summary ---
Author Organization [facility] Healthcare Address [address] [place] [address] Care Team Providers Care Planishing Hammer Operator Name Role Phone Nbole Dash MD Primary Care Provider + [phone] Ward Viera MD Unavailable [phone] Lori Jose MD Unavailable Encounter Details Date Type Department Care Team (Late st Contact Info) Description 11/27/2023 Orders Only [facility] [address] [place] [address] Scanning, Provider Social History Tobacco [...] on file Legal Sex Female 12:35 PM RAG PRODUCTION WORKER Gender Identity Not on file Sexual Orientation [...] on filedocumented in this encounter Care Teams Planishing Hammer Operator Relationship Specialty Start Date End Date Noble Dash MD [facility] [place] [address] PCP - General 01/28/20 Ward Viera MD [address] [address] [place] [address] Piggyback Clerk Obstetrics and Gynecology 01/29/20 Lori Jose MD [address] [place] [address] Piggyback Clerk Obstetrics and Gynecology 07/29/24 documented as of this encounter
--- OUTSIDE RECORDS SUMMARY | 2024-11-10 13:16 | XMS_ITS | Clinical Summary ---
Author Organization [facility] Address [address] [place] [address] Phone Care Team Providers Care Charging Plug Placer Name Role Phone Noble Dash MD Primary Care Provider [phone] Allergies No known active allergies Medications No [...] of Treatment Not on file Care Teams Charging Plug Placer Relationship Specialty Start Date End Date Noble Dash MD [facility] [place] [address] PCP - General Assembly Machine Feeder 01/28/20
[2024-11-10 18:49] LABS: Hematocrit 40.5 % (37.0-47.0); Hemoglobin 11.9 g/dL (12.0-15.0); Mean Corpuscular HGB Conc 29.4 g/dl (32-36); Mean Corpuscular Hemoglobin 25.5 pg (26-34); Mean Corpuscular Volume 86.7 fl (80-100); Mean Platelet Volume 9.9 fl (7.4-10.4); Platelet Count Result 533 k/mm3 (150-375); Red Blood Count 4.67 M/mm3 (4.2-5.4); Red Cell Distribution Width 14.1 % (11.5-14.5); White Blood Count 12.7 K/mm3 (4.5-10.0)
[2024-11-10 20:27] LABS: Folic Acid 16.9 ng/mL (2.76->20)
== END 2024-11-10 11:44 | disposition home or self-care (01) ==
PROVIDERS: PCP Nurse Practitioner Adult Health; Visit Provider Nurse Practitioner Adult Health
DX: D64.9 Anemia, unspecified (principal)
CPT/HCPCS: 36415; 82607; 82728; 82746; 85027